=== PATIENT | female | born 1955 | race Caucasian/White ===

== ENCOUNTER 2016-06-25 10:53 | Day surgery (SDC) | payer BC ==
[2016-06-24 15:07] VITALS: BMI 36.6
[2016-06-25] MEDS ORDERED: PROPOFOL 20 ML ONE ×2 (14:18)
[2016-06-25] MEDS ORDERED: ROCURONIUM BROMIDE 50 MG/5 ML VIAL ONE (14:20)
[2016-06-25] MEDS ORDERED: ONDANSETRON 4 MG/2 ML VIAL ONE (14:48)
[2016-06-25] MEDS ORDERED: METOCLOPRAMIDE HCL INJECTION 10 MG/2 ML VIAL ONE (14:49)
[2016-06-25] MEDS ORDERED: DEXAMETHASONE SOD PHOSPHATE 10 MG/1 ML VIAL ONE (14:49)
[2016-06-25] MEDS ORDERED: ceFAZolin SODIUM 1 GM VIAL ONE (15:12)
[2016-06-25] MEDS ORDERED: ONDANSETRON 4 MG/2 ML VIAL IVPUSH PRN (16:33)
[2016-06-25] MEDS ORDERED: LACTATED RINGERS SOLUTION 1,000 ML IV SCH (16:45)
[2016-06-25 17:10] VITALS: TEMP 97.8
[2016-06-25 18:45] VITALS: BP 109/67; PULSE 69
== END 2016-06-25 18:40 | disposition home or self-care (01) ==
LOC: JASU-ENDO 10:53
PROVIDERS: ATTEND Internal Medicine Gastroenterology
PROC: 0F798ZZ Dilation of Common Bile Duct, Via Natural or Artificial Opening Endoscopic (ICD-10-PCS; principal; 2016-06-25 12:30)
DX: K82.8 Other specified diseases of gallbladder (principal); R10.11 Right upper quadrant pain; R11.2 Nausea with vomiting, unspecified
CPT/HCPCS: 76000-TC; 94760

== ENCOUNTER 2016-12-30 17:06 | Emergency (ER) | payer BC ==
[2016-12-30 17:44] VITALS: TEMP 98.7; BMI 35.2
[2016-12-30] MEDS ORDERED: ACETAMINOPHEN 325 MG TABLET (FP) PO ONE (17:46)
--- NOTE | 2016-12-30 17:46 | PDOC ---
Rapid Medical Evaluation Chief Complaint: Headache Time Seen by Provider: 12/30/16 17:41 Medical Evaluation: Allergies Allergy/AdvReac Type Severity Reaction Status Date / Time levofloxacin [From Levaquin] Allergy Verified 12/30/16 17:39 12/30/16 17:42 I have performed a brief in person evaluation of this patient. The patient presents with chief complaint of : headache and hypertension, ringing in left ear sent by PMD Pertinent PE findings: BP 168/90, headache to forehead and top of head I have ordered the following: head cat scan , tylenol 650mg now The patient will proceed to the ER for further evaluation. 12/30/16 17:45
[2016-12-30] MEDS ORDERED: ACETAMINOPHEN 325 MG TABLET (FP) ONE (18:56)
[2016-12-30] MEDS ORDERED: HYDROCHLOROTHIAZIDE 25 MG TABLET (FP) PO ONE (19:55)
[2016-12-30] MEDS ORDERED: LISINOPRIL 10 MG TABLET (FP) PO ONE (19:55)
[2016-12-30] MEDS ORDERED: HYDROCHLOROTHIAZIDE 25 MG TABLET (FP) ONE (19:57)
[2016-12-30] MEDS ORDERED: LISINOPRIL 5 MG TABLET (FP) ONE (19:58)
--- NOTE | 2016-12-30 19:59 | PDOC ---
History of Present Illness - General Chief Complaint: Headache Stated Complaint: PCP SENT/HEADACHE Time Seen by Provider: 12/30/16 17:41 History Source: Patient Exam Limitations: No Limitations - History of Present Illness Initial Comments: 12/30/16 19:59 Patient is a 61 yo F with a PMHx of HTN, anxiety, presented to the ED because of a diffuse headache and dizziness that started on . The pain is on the top of her head, 6/10 pain. It got better over the weekend but today the headache came back. She was given tylenol which helped alleviate the pain. She said she usually gets headaches when her BP is elevated. She also had a headache when she traveled to [place] where she says her BP went to 210/90. She does not routinely check her blood pressure at home. Her anti-hypertensive meds were changed 2 months ago and feels it is not working. Patient denies visual changes, numbness, tingling, LOC, chest pain, photosensitivity and abdominal pain. Past History - Past Medical History Allergies/Adverse Reactions: Allergies Allergy/AdvReac Type Severity Reaction Status Date / Time levofloxacin [From Levaquin] Allergy Verified 12/30/16 17:39 Home Medications: Ambulatory Orders Sertraline HCl [Zoloft -] 25 mg PO DAILY #30 tablet 05/26/14 Hydrochlorothiazide 25 mg PO DAILY 06/25/16 Anemia: No Asthma: No Cancer: No Cardiac Disorders: Yes (angina) CVA: No COPD: No CHF: No Dementia: No Diabetes: No GI Disorders: Yes Disorders: No HTN: Yes Hypercholesterolemia: Yes Liver Disease: No Psychiatric Problems: Yes (ANXIETY) Seizures: No Thyroid Disease: No - Surgical History Abdominal Surgery: No Cardiac Surgery: No Cholecystectomy: Yes Lung Surgery: No Neurologic Surgery: No Orthopedic Surgery: Yes (ARTHROSCOPY KNEE, ELBOW,ANKLE) - Immunization History Immunization Up to Date: Yes - Suicide/Smoking/Psychosocial Hx Smoking Status: Yes Smoking History: Former smoker Have you smoked in the past 12 months: No Number of Cigarettes Smoked Daily: 0 If you are a former smoker, when did you quit?: 18YRS Information on smoking cessation initiated: No Hx Alcohol Use: No Drug/Substance Use Hx: No Substance Use Type: None Hx Substance Use Treatment: No Review of Systems - Review of Systems Able to Perform ROS?: Yes Constitutional: No: Diaphoresis, Fever, Weakness HEENTM: No: Blurred Vision, Recent change in vision, Throat Pain ABD/GI: No: Diarrhea, Nausea, Vomiting : No: Burning, Dysuria Neurological: Yes: Headache. No: Numbness, Paresthesia *Physical Exam - Vital Signs Last Vital Signs Temp Pulse Resp BP Pulse Ox 98.7 F 69 16 160/90 100 12/30/16 17:40 12/30/16 17:40 12/30/16 17:40 12/30/16 17:40 12/30/16 17:40 12/30/16 20:46 Last BP read: 155/85 - Physical Exam Comments: 12/30/16 20:44 General: No acute distress, appears comfortable Neuro: CN 2-12 intact. PERRL, EOMI, strength 5/5 throughout CV: RRR, no murmurs appreciated Lungs: CTA b/l, no rales rhonchi wheezing Abdomen: +Bs, nt, nd Ext: 1+ left radial pulse, 2+ right radial pulse, no pitting edema ED Treatment Course - Medications Given in the ED: ED Medications Discontinued Medications Generic Name Dose Route Start Last Admin Trade Name Gerberq PRN Reason Stop Dose Admin Acetaminophen 650 mg 12/30/16 17:46 12/30/16 18:59 Tylenol - PO 12/30/16 17:47 650 mg ONCE ONE Administration Medical Decision Making - Medical Decision Making 12/30/16 20:47 #Headache #HTN -Head CT negative for acute changes -Tylenol given, alleviated the pain -Lisinopril 10mg, HCTZ 12.5 mg Patient's BP 155/85 before administering lisinopril, hctz. Will discharge. *DC/Admit/Observation/Transfer Diagnosis at time of Disposition: Hypertension Qualifiers: Hypertension type: unspecified Qualified Code(s): I10 - Essential (primary) hypertension Headache Qualifiers: Headache type: unspecified Headache chronicity pattern: acute headache Intractability: not intractable Qualified Code(s): R51 - Headache - Discharge Dispostion Disposition: HOME Condition at time of disposition: Improved Admit: No - Referrals Referrals: Jennifer Davies MD [Primary Care Provider] - Call tomorrow - Patient Instructions Printed Discharge Instructions: How to Monitor Your Blood Pressure at Home Additional Instructions: Please monitor your blood pressure at home. You must follow up with your primary care physician in 1 week. If you feel your symptoms are worsening call your doctor. If it is an emergency, go to your nearest emergency department.
[2017-01-29 13:00] VITALS: BP 146/72; PULSE 65
== END 2016-12-30 20:09 | disposition home or self-care (01) ==
LOC: JER 17:06
DX: I10 Essential (primary) hypertension (principal); E78.00 Pure hypercholesterolemia, unspecified; F41.9 Anxiety disorder, unspecified; Z87.891 Personal history of nicotine dependence
CPT/HCPCS: 70450-TC; 99281-25; 99282-25

== ENCOUNTER 2017-03-04 20:24 | Emergency (ER) | payer BC ==
[2017-03-04 20:30] VITALS: BP 151/77; PULSE 71; TEMP 98.5; BMI 34.4
[2017-03-04] MEDS ORDERED: ASPIRIN 81 MG CHEWABLE TABLETS PO ONE (20:30)
--- NOTE | 2017-03-04 20:30 | PDOC ---
Rapid Medical Evaluation Chief Complaint: Chest Pain Time Seen by Provider: 03/04/17 20:26 Medical Evaluation: Allergies Allergy/AdvReac Type Severity Reaction Status Date / Time levofloxacin [From Levaquin] Allergy Verified 12/30/16 17:39 03/04/17 20:26 CC: midsternal chest pain since this afternoon with nausea. + dipahoresis. pain worse with deep breaths. PMhx; HTN, cardiac catherization. PE: breath sounds clear . regular rate. Plan; cbc cmp cardiac labs, EKG, chest xray Patient to the ED for further management of care/
[2017-03-04] MEDS ORDERED: ASPIRIN COATED 81 MG TABLET.EC ONE (20:31)
[2017-03-04 21:05] LABS: BASO % 0.8 % (0-2.0); EOS % 1.6 % (0-4.5); HEMOGLOBIN 12.6 GM/dL (10.7-15.3); LYMPH % 30.4 % (8-40); MCH 28.1 pg (25.7-33.7); MCHC 33.1 g/dl (32.0-36.0); MEAN CELL VOLUME 84.9 fl (80-96); MEAN PLT VOLUME 9.2 fl (7.5-11.1); MONO % 7.7 % (3.8-10.2); NEUT % 59.5 % (42.8-82.8); PLATELET COUNT 282 K/MM3 (134-434); RBC 4.48 M/mm3 (3.60-5.2); RDW 14.4 % (11.6-15.6); WHITE BLOOD COUNT 8.4 K/mm3 (4.0-10.0)
[2017-03-04 21:20] LABS: URINE APPEARANCE CLEAR; URINE BILIRUBIN NEGATIVE (NEGATIVE); URINE BLOOD NEGATIVE (NEGATIVE); URINE COLOR COLORLESS; URINE GLUCOSE (UA) NEGATIVE (NEGATIVE); URINE KETONE NEGATIVE (NEGATIVE); URINE LEUK ESTERASE NEGATIVE (NEGATIVE); URINE NITRITE NEGATIVE (NEGATIVE); URINE PROTEIN NEGATIVE (NEGATIVE); URINE UROBILINOGEN NEGATIVE mg/dL (0.2-1.0)
[2017-03-04 21:22] LABS: INR 0.93 (0.82-1.09); PROTHROMBIN TIME (PATIENT) 10.5 SEC (9.98-11.88)
[2017-03-04 21:26] LABS: ALBUMIN 3.5 g/dl (3.4-5.0); ANION GAP 5 (8-16); BILIRUBIN,TOTAL 0.2 mg/dL (0.2-1.0); BLOOD UREA NITROGEN 19 mg/dL (7-18); CALCIUM 8.7 mg/dL (8.5-10.1); CHLORIDE 105 mmol/L (98-107); CO2 28 mmol/L (21-32); CREATININE 0.8 mg/dL (0.55-1.02); GLUCOSE,RANDOM 99 mg/dL (74-106); MAGNESIUM 2.2 mg/dL (1.8-2.4); POTASSIUM 4.1 mmol/L (3.5-5.1); SGOT/AST 11 U/L (15-37); SGPT/ALT 21 U/L (12-78); SODIUM 138 mmol/L (136-145); TOT PROT 7.6 g/dl (6.4-8.2)
[2017-03-04 21:29] LABS: ALK PHOS 89 U/L (45-117)
--- NOTE | 2017-03-05 00:02 | PDOC ---
History of Present Illness - General Exam Limitations: No Limitations - History of Present Illness Initial Comments: 03/05/17 00:09 The patient is a 61 year old female, with a significant past medical history of hypertension, angina, hyperlipidemia, headaches and anxiety, who presents to the emergency department with, mid-sternal chest pain beginning approx. 8 hours ago. Patient reports the chest pain began at work when she was at rest. Patient reports the chest pain does not radiate and states she felt nauseous secondary to the chest pain without vomiting. She reports the chest pain was alleviated with rest and reports she did not take any medications for the chest pain. The patient reports she had some minor chest pain when arriving at the ED. However, reports the chest pain has now improved. She denies recent travel or sick contacts. She denies recent fevers, chills, headache or dizziness. She denies recent, vomit, diarrhea or constipation. She denies recent dysuria, frequency, urgency or hematuria. She denies shortness of breath. Allergies: levofloxacin Primary Care Physician: Dr. Jennifer Davies <Christiano Eller - Last Filed: 03/05/17 00:51> - General History Source: Patient <Reji Ortega - Last Filed: 03/05/17 01:03> - General Chief Complaint: Chest Pain Stated Complaint: CHEST PAIN Time Seen by Provider: 03/04/17 20:26 Past History <Christiano Eller - Last Filed: 03/05/17 00:51> - Past Medical History Anemia: No Asthma: No Cancer: No Cardiac Disorders: Yes (angina) CVA: No COPD: No CHF: No Dementia: No Diabetes: No GI Disorders: Yes Disorders: No HTN: Yes Hypercholesterolemia: Yes Liver Disease: No Psychiatric Problems: Yes (ANXIETY) Seizures: No Thyroid Disease: No - Surgical History Abdominal Surgery: No Cardiac Surgery: Yes (cardiac catheterization) Cholecystectomy: Yes Lung Surgery: No Neurologic Surgery: No Orthopedic Surgery: Yes (ARTHROSCOPY KNEE, ELBOW,ANKLE) - Immunization History Immunization Up to Date: Yes - Suicide/Smoking/Psychosocial Hx Smoking Status: Yes Smoking History: Never smoked Have you smoked in the past 12 months: No Number of Cigarettes Smoked Daily: 0 If you are a former smoker, when did you quit?: 18YRS Information on smoking cessation initiated: No Hx Alcohol Use: No Drug/Substance Use Hx: No Substance Use Type: None Hx Substance Use Treatment: No <HuloiReji - Last Filed: 03/05/17 01:03> - Past Medical History Allergies/Adverse Reactions: Allergies Allergy/AdvReac Type Severity Reaction Status Date / Time levofloxacin [From Levaquin] Allergy Verified 03/04/17 20:27 Home Medications: Ambulatory Orders Sertraline HCl [Zoloft -] 25 mg PO DAILY #30 tablet 05/26/14 Hydrochlorothiazide 25 mg PO DAILY 06/25/16 Review of Systems - Review of Systems Comments:: 03/05/17 00:10 CONSTITUTIONAL: Absent: fever, no chills, no fatigue EYES: Absent: visual changes ENT: Absent: ear pain, no sore throat CARDIOVASCULAR: Present: +Chest pain Absent: no palpitations RESPIRATORY: Absent: cough, no SOB GI: Present: +Nausea Absent: abdominal pain, no vomiting, no constipation, no diarrhea GENITOURINARY: Absent: dysuria, no frequency, no hematuria MUSKULOSKELETAL: Absent: back pain, no arthralgia, no myalgia SKIN: Absent: rash NEURO: Absent: headache <Christiano Eller - Last Filed: 03/05/17 00:51> *Physical Exam - Vital Signs Last Vital Signs Temp Pulse Resp BP Pulse Ox 98.5 F 71 18 151/77 100 03/04/17 20:27 03/04/17 20:27 03/04/17 20:27 03/04/17 20:27 03/04/17 20:27 - Physical Exam Comments: 03/05/17 00:10 GENERAL: Well-appearing, well-nourished. No apparent distress. HEENT: Normocephalic, atraumatic. PERRL, EOM intact. CARDIOVASCULAR: Normal S1, S2. Regular rate and rhythm. PULMONARY: Clear to auscultation bilaterally. ABDOMEN: Soft, non-distended, non-tender. EXTREMITIES: Normal ROM in all four extremities. No gross deformities. SKIN: Warm, dry. No rash NEUROLOGICAL: No focal neurological deficits. <Christiano Eller - Last Filed: 03/05/17 00:51> - Vital Signs Last Vital Signs Temp Pulse Resp BP Pulse Ox 98.5 F 71 18 151/77 100 03/04/17 20:27 03/04/17 20:27 03/04/17 20:27 03/04/17 20:27 03/04/17 20:27 <Reji Ortega - Last Filed: 03/05/17 01:03> Heart Score/ECG Review #1 03/05/17 00:11 Normal Sinus Rhythm at 62 bpm QT/QTc 426/432 ms #2 03/05/17 00:51 Sinus Rhythm at 61 bpm with 1st degree AV block QT/QTc 448/450 ms <Christiano Eller - Last Filed: 03/05/17 00:51> ED Treatment Course - LABORATORY CBC & Chemistry Diagram: 03/04/17 20:44 03/04/17 20:44 - ADDITIONAL ORDERS Additional order review: Laboratory Results 03/04/17 03/04/17 03/04/17 20:55 20:44 20:44 PT with INR 10.50 INR 0.93 Sodium 138 Potassium 4.1 Chloride 105 Carbon Dioxide 28 Anion Gap 5 L BUN 19 H D Creatinine 0.8 D Creat Clearance w eGFR > 60 Random Glucose 99 D Calcium 8.7 Magnesium 2.2 D Total Bilirubin 0.2 D AST 11 L D ALT 21 D Alkaline Phosphatase 89 D Creatine Kinase 77 Troponin I < 0.02 Total Protein 7.6 Albumin 3.5 Urine Color Colorless Urine Appearance Clear Urine pH 6.0 Ur Specific Byron 1.006 Urine Protein Negative Urine Glucose (UA) Negative Urine Ketones Negative Urine Blood Negative Urine Nitrite Negative Urine Bilirubin Negative Urine Urobilinogen Negative Ur Leukocyte Esterase Negative 03/04/17 20:44 RBC 4.48 MCV 84.9 MCHC 33.1 RDW 14.4 MPV 9.2 Neutrophils % 59.5 D Lymphocytes % 30.4 D Monocytes % 7.7 Eosinophils % 1.6 D Basophils % 0.8 - Medications Given in the ED: ED Medications Discontinued Medications Generic Name Dose Route Start Last Admin Trade Name Freq PRN Reason Stop Dose Admin Aspirin 162 mg 03/04/17 20:30 03/04/17 21:31 Asa - PO 03/04/17 20:31 162 mg ONCE ONE Administration <Christiano Eller - Last Filed: 03/05/17 00:51> - LABORATORY CBC & Chemistry Diagram: 03/04/17 20:44 03/04/17 20:44 - ADDITIONAL ORDERS Additional order review: Laboratory Results 03/04/17 03/04/17 03/04/17 20:55 20:44 20:44 PT with INR 10.50 INR 0.93 Sodium 138 Potassium 4.1 Chloride 105 Carbon Dioxide 28 Anion Gap 5 L BUN 19 H D Creatinine 0.8 D Creat Clearance w eGFR > 60 Random Glucose 99 D Calcium 8.7 Magnesium 2.2 D Total Bilirubin 0.2 D AST 11 L D ALT 21 D Alkaline Phosphatase 89 D Creatine Kinase 77 Troponin I < 0.02 Total Protein 7.6 Albumin 3.5 Urine Color Colorless Urine Appearance Clear Urine pH 6.0 Ur Specific Byron 1.006 Urine Protein Negative Urine Glucose (UA) Negative Urine Ketones Negative Urine Blood Negative Urine Nitrite Negative Urine Bilirubin Negative Urine Urobilinogen Negative Ur Leukocyte Esterase Negative 03/04/17 20:44 RBC 4.48 MCV 84.9 MCHC 33.1 RDW 14.4 MPV 9.2 Neutrophils % 59.5 D Lymphocytes % 30.4 D Monocytes % 7.7 Eosinophils % 1.6 D Basophils % 0.8 - Medications Given in the ED: ED Medications Discontinued Medications Generic Name Dose Route Start Last Admin Trade Name Gerberq PRN Reason Stop Dose Admin Aspirin 162 mg 03/04/17 20:30 03/04/17 21:31 Asa - PO 03/04/17 20:31 162 mg ONCE ONE Administration <Reji Ortega - Last Filed: 03/05/17 01:03> Medical Decision Making - Medical Decision Making 03/05/17 01:01 Dr. Ortega: The scribe's documentation has been prepared under my direction and personally reviewed by me in its entirery. I confirm that the note above accurately reflects all work, treatment, procedures, and medical decision making performed by me. labs, chest x-ray, and EKGs are normal. Pt advised to go to her pcp and orientation & mobility specialist immediately if symptoms continue. <Reji Ortega - Last Filed: 03/05/17 01:03> *DC/Admit/Observation/Transfer - Attestations Scribe Attestion: 03/05/17 00:12 Documentation prepared by Christiano Eller, acting as certified medical technician assistant for Reji Ortega MD. <Christiano Eller - Last Filed: 03/05/17 00:51> - Discharge Dispostion Admit: No <Reji Ortega - Last Filed: 03/05/17 01:03> Diagnosis at time of Disposition: Chest pain Qualifiers: Chest pain type: unspecified Qualified Code(s): R07.9 - Chest pain, unspecified - Discharge Dispostion Disposition: HOME Condition at time of disposition: Stable - Referrals Referrals: Jennifer Davies MD [Primary Care Provider] - Wilfrido Kemp MD [Staff Physician] - - Patient Instructions Printed Discharge Instructions: DI for Chest Pain Additional Instructions: continue all your medications. Please follow up with your doctor as soon as possible, if symptoms continue. Return if any problems. - Post Discharge Activity
--- NOTE | 2017-03-05 09:31 | EKG ---
Test Reason : Blood Pressure : / mmHG Vent. Rate : 062 BPM Atrial Rate : 062 BPM P-R Int : 204 ms QRS Dur : 072 ms QT Int : 426 ms P-R-T Axes : 046 044 048 degrees QTc Int : 432 ms POOR DATA QUALITY, INTERPRETATION MAY BE ADVERSELY AFFECTED NORMAL SINUS RHYTHM NORMAL ECG WHEN COMPARED WITH ECG OF 05-APR-2015 01:05, NO SIGNIFICANT CHANGE WAS FOUND Confirmed by FRANCINE RAINES, SHRADDHA ([id number]) on 03/05/2017 9:30:51 AM Referred By: Confirmed By:SHRADDHA ESCAMILLA MD
--- NOTE | 2017-03-05 09:37 | EKG ---
Test Reason : Blood Pressure : / mmHG Vent. Rate : 061 BPM Atrial Rate : 061 BPM P-R Int : 218 ms QRS Dur : 078 ms QT Int : 448 ms P-R-T Axes : 079 054 061 degrees QTc Int : 450 ms SINUS RHYTHM WITH 1ST DEGREE A-V BLOCK SEPTAL INFARCT , AGE UNDETERMINED ABNORMAL ECG WHEN COMPARED WITH ECG OF 04-MAR-2017 20:37, NO SIGNIFICANT CHANGE WAS FOUND Confirmed by SHRADDHA ESCAMILLA MD ([id number]) on 03/05/2017 9:37:08 AM Referred By: Confirmed By:SHRADDHA ESCAMILLA MD
== END 2017-03-05 01:05 | disposition home or self-care (01) ==
LOC: JER 20:24
DX: R07.89 Other chest pain (principal); I25.119 Atherosclerotic heart disease of native coronary artery with unspecified angina pectoris; Z98.61 Coronary angioplasty status; I10 Essential (primary) hypertension; E78.5 Hyperlipidemia, unspecified; R51 Headache; F41.9 Anxiety disorder, unspecified
CPT/HCPCS: 36415; 71046-TC; 80053; 81003; 82550; 83735; 84484; 85025; 85610; 93005; 93010; 99281-25

== ENCOUNTER 2017-12-03 16:21 | Emergency (ER) | payer BC ==
[2017-12-03 16:34] VITALS: BP 148/64; PULSE 82; TEMP 98.3; BMI 31.3
--- NOTE | 2017-12-03 16:35 | PDOC ---
Rapid Medical Evaluation Time Seen by Provider: 12/03/17 16:31 Medical Evaluation: Allergies Allergy/AdvReac Type Severity Reaction Status Date / Time levofloxacin [From Levaquin] Allergy Verified 03/04/17 20:27 12/03/17 16:32 The patient complains of: tripped and fell striking her face . no loc, no dizziness priot to fall, on no anticoagulant, last tdap less than 5 yrs ago On brief exam: abrasion and ecchymosis to left cheek and orbital floor, laceration to left upper lip across the maliha border, abrasion to right 5 th digit The patient ordered for: facial ct The patient to proceed to the ED Discharge Disposition - Diagnosis Fall - Referrals - Patient Instructions - Post Discharge Activity
--- NOTE | 2017-12-03 17:49 | PDOC ---
History of Present Illness - General Chief Complaint: Injury Stated Complaint: FALL/INJURY Time Seen by Provider: 12/03/17 16:31 - History of Present Illness Initial Comments: 62-year-old female with past medical history significant for hypertension presents for evaluation of right knee pain and facial pain after a fall. She states she tripped and fell landing on her face and right knee. No loss consciousness postinjury nausea vomiting or headache. No visual changes. 12/03/17 17:36 Past History - Past Medical History Allergies/Adverse Reactions: Allergies Allergy/AdvReac Type Severity Reaction Status Date / Time levofloxacin [From Levaquin] Allergy Verified 12/03/17 16:35 Home Medications: Ambulatory Orders Sertraline HCl [Zoloft -] 25 mg PO DAILY #30 tablet 05/26/14 Hydrochlorothiazide 25 mg PO DAILY 06/25/16 Anemia: No Asthma: No Cancer: No Cardiac Disorders: Yes (angina) CVA: No COPD: No CHF: No Dementia: No Diabetes: No GI Disorders: Yes Disorders: No HTN: Yes Hypercholesterolemia: Yes Liver Disease: No Psychiatric Problems: Yes (ANXIETY) Seizures: No Thyroid Disease: No - Surgical History Abdominal Surgery: No Cardiac Surgery: Yes (cardiac catheterization) Cholecystectomy: Yes Lung Surgery: No Neurologic Surgery: No Orthopedic Surgery: Yes (ARTHROSCOPY KNEE, ELBOW,ANKLE) - Immunization History Immunization Up to Date: Yes - Suicide/Smoking/Psychosocial Hx Smoking Status: Yes Smoking History: Never smoked Have you smoked in the past 12 months: No Number of Cigarettes Smoked Daily: 0 If you are a former smoker, when did you quit?: 18YRS Information on smoking cessation initiated: No Hx Alcohol Use: No Drug/Substance Use Hx: No Substance Use Type: None Hx Substance Use Treatment: No Review of Systems - Review of Systems HEENTM: Yes: See HPI Musculoskeletal: Yes: See HPI, Joint Pain All Other Systems: Reviewed and Negative *Physical Exam - Vital Signs Last Vital Signs Temp Pulse Resp BP Pulse Ox 98.3 F 82 16 148/64 98 12/03/17 16:22 12/03/17 16:22 12/03/17 16:22 12/03/17 16:22 12/03/17 16:22 - Physical Exam Comments: HEAD: NC there are multiple facial abrasions around the left eye all superficial., As a subcentimeter laceration longitudinally on the left side of the upper lip crossing the vermilion border with a small amount of subcutaneous fat exposed. EYES: Conjuntiva clear Ears: Canals and TM's normal NOSE: No d/c THROAT: Moist mucous membrances, oral pharanx clear, uvula midline NECK: Supple without adenopathy CARDIAC: S1 S2 LUNGS: CTA Full and Equal breath sounds ABDOMEN: Soft NT ND MS: Full ROM in all joints without edema NEUROLOGIC: No gross sensory or motor deficits, NVID SKIN: Normal color and temperature no lesions or rashes 12/03/17 17:36 12/03/17 19:01 Right knee skin color and temperature are normal range of motion 0-90 is mild tenderness at the anterior aspect of the knee. No evidence of instability or gross sensory motor deficits thighs and calves are soft and nontender. Medical Decision Making - Medical Decision Making 12/03/17 17:49 Had discussion about wound healing and primary repair of the laceration. Patient refused primary suturing of the lip laceration. She would like to let it heal by secondary intention. 12/03/17 19:03 CT facial bones negative for fracture. *DC/Admit/Observation/Transfer Diagnosis at time of Disposition: Fall, Knee contusion, Facial abrasion - Discharge Dispostion Disposition: HOME Condition at time of disposition: Stable Decision to Admit order: No - Referrals Referrals: Jennifer Davies MD [Primary Care Provider] - - Patient Instructions Printed Discharge Instructions: DI for Abrasion, Contusion Additional Instructions: Return to the emergency room should symptoms worsen or go unresolved. Please follow up with her primary care physician for further evaluation and treatment of the wounds. Local soap and water and leaving the areas open to air it is acceptable for wound care. He may return to the emergency room should he have any redness drainage swelling or increasing pain around the areas of the wounds. The right knee injury may follow-up with orthopedic surgery for further evaluation and treatment options. Should follow up with both her primary care physician and orthopedic surgery in one to 2 days. Your wound on her level have a scar. You have refused suturing and this will heal on its own. - Post Discharge Activity
== END 2017-12-03 19:07 | disposition home or self-care (01) ==
LOC: JERFT 16:21
DX: S80.01XA Contusion of right knee, initial encounter (principal); I10 Essential (primary) hypertension; F41.9 Anxiety disorder, unspecified; E78.00 Pure hypercholesterolemia, unspecified; Z87.891 Personal history of nicotine dependence; W18.39XA Other fall on same level, initial encounter; Y93.89 Activity, other specified; Y92.9 Unspecified place or not applicable
CPT/HCPCS: 70486-TC; 73562-TC-RT-FY; 99281-25

== ENCOUNTER 2018-10-22 21:28 | Emergency (ER) | payer BC ==
--- NOTE | 2018-10-22 21:35 | PDOC ---
Rapid Medical Evaluation Chief Complaint: Wound Time Seen by Provider: 10/22/18 21:30 Medical Evaluation: Allergies Allergy/AdvReac Type Severity Reaction Status Date / Time levofloxacin [From Levaquin] Allergy Verified 12/03/17 16:35 10/22/18 21:31 63 year old female c/o left 4th digit infection. patient seen in urgent care and has been taking Augmentin x 2 days. now with increased swelling to hand and pain. PE: patient alert ox3, left 4th digit swollen and erythematous. no streaking noted. A: finger cellulitis P: xray labs patient to the ER for further management of care Discharge Disposition - Diagnosis Cellulitis of finger of left hand - Referrals - Patient Instructions - Post Discharge Activity
[2018-10-22 21:38] VITALS: BP 150/76; PULSE 93; TEMP 98.5; BMI 36.0
[2018-10-22] MEDS ORDERED: SULFAMETHOXAZOLE/TRIMETHOPRIM 800MG/160MG D.S. TABLET PO ONE (22:24)
[2018-10-22] MEDS ORDERED: CEPHALEXIN MONOHYDRATE 500 MG CAPSULE (UD) PO ONE (22:24)
[2018-10-22] MEDS ORDERED: IBUPROFEN 600 MG TABLET (FP) PO ONE ×2 (22:25→22:27)
[2018-10-22] MEDS ORDERED: SULFAMETHOXAZOLE/TRIMETHOPRIM 800MG/160MG D.S. TABLET ONE (22:26)
[2018-10-22] MEDS ORDERED: CEPHALEXIN MONOHYDRATE 500 MG CAPSULE (UD) ONE (22:27)
--- NOTE | 2018-10-22 22:51 | PDOC ---
History of Present Illness - General Chief Complaint: Wound Stated Complaint: SWOLLEN FINGER Time Seen by Provider: 10/22/18 21:30 History Source: Patient Exam Limitations: No Limitations Past History - Past Medical History Allergies/Adverse Reactions: Allergies Allergy/AdvReac Type Severity Reaction Status Date / Time levofloxacin [From Levaquin] Allergy Verified 10/22/18 21:34 Home Medications: Ambulatory Orders Sertraline HCl [Zoloft -] 25 mg PO DAILY #30 tablet 05/26/14 Hydrochlorothiazide 25 mg PO DAILY 06/25/16 Cephalexin [Keflex] 500 mg PO QID #39 capsule 10/22/18 Sulfamethoxazole/Trimethoprim [Bactrim Ds -] 1 tab PO BID #19 tablet 10/22/18 Anemia: No Asthma: No Cancer: No Cardiac Disorders: Yes (angina) CVA: No COPD: No CHF: No Dementia: No Diabetes: No GI Disorders: Yes Disorders: No HTN: Yes Hypercholesterolemia: Yes Liver Disease: No Psychiatric Problems: Yes (ANXIETY) Seizures: No Thyroid Disease: No - Surgical History Abdominal Surgery: No Cardiac Surgery: Yes (cardiac catheterization) Cholecystectomy: Yes Lung Surgery: No Neurologic Surgery: No Orthopedic Surgery: Yes (ARTHROSCOPY KNEE, ELBOW,ANKLE) - Immunization History Immunization Up to Date: Yes - Suicide/Smoking/Psychosocial Hx Smoking Status: Yes Smoking History: Never smoked Have you smoked in the past 12 months: No Number of Cigarettes Smoked Daily: 0 If you are a former smoker, when did you quit?: 18YRS Information on smoking cessation initiated: No Hx Alcohol Use: No Drug/Substance Use Hx: No Substance Use Type: None Hx Substance Use Treatment: No *Physical Exam - Vital Signs Last Vital Signs Temp Pulse Resp BP Pulse Ox 98.5 F 93 H 16 150/76 98 10/22/18 21:35 10/22/18 21:35 10/22/18 21:35 10/22/18 21:35 10/22/18 21:35 - Physical Exam General Appearance: No: Apparent Distress Extremity: positive: Other (+swelling and redness along L 4th PIP joint, clear drainage from finger, +warmth, no streaking noted, limited flexion/extension of finger) Neurologic: positive: Alert, Normal Mood/Affect ED Treatment Course - Medications Given in the ED: ED Medications Discontinued Medications Generic Name Dose Route Start Last Admin Trade Name Freq PRN Reason Stop Dose Admin Cephalexin HCl 500 mg 10/22/18 22:24 10/22/18 22:30 Keflex - PO 10/22/18 22:25 500 mg ONCE ONE Administration Ibuprofen 600 mg 10/22/18 22:25 10/22/18 22:30 Motrin - PO 10/22/18 22:26 600 mg ONCE ONE Administration Trimethoprim/Sulfamethoxazole 1 each 10/22/18 22:24 10/22/18 22:30 Bactrim Ds - PO 10/22/18 22:25 1 each ONCE ONE Administration Medical Decision Making - Medical Decision Making 63 yo F hx of HTN, anxiety presents with L ring finger infection from 3 days ago. States 5 days ago, noted a blister on her finger, which she popped with a pin. The next day, she was aggressively cleaning site with Peroxide and Neosporin. Noticed finger was starting to get worse along with clear discharge. Went to yesterday and was prescribed Bactroban and Augmentin. However, states the finger does not appear to be getting better. Has taken 4 dose of the Augmentin. Has not noted any increased in redness but has noted increase in swelling. Denies fever, streaking. Unaware of any possible bug bite Appears as L finger cellulitis Xrays unremarkable No concern for tenosynovitis based on current exam Site of cellulitis was demarcated and wound culture was sent Will change abx to Keflex and Bactrim Patient advised to return if getting worse D/W Dr. Briceño 10/22/18 22:46 *DC/Admit/Observation/Transfer Diagnosis at time of Disposition: Cellulitis of finger of left hand - Discharge Dispostion Disposition: HOME Condition at time of disposition: Stable Decision to Admit order: No - Prescriptions Prescriptions: Cephalexin [Keflex] 500 mg PO QID #39 capsule Sulfamethoxazole/Trimethoprim [Bactrim Ds -] 1 tab PO BID #19 tablet - Referrals Referrals: Jennifer Davies MD [Primary Care Provider] - 2 Days - Patient Instructions Printed Discharge Instructions: DI for Cellulitis -- Adult Additional Instructions: Thank you for choosing [facility]. It was a pleasure taking care of you. You may take Motrin 600 mg every 6 hours by mouth as needed for mild to moderate pain. Take Motrin with food. Take the antibiotics as prescribed Please stop the Augmentin and Bactroban ointment Please return in 2 days for wound check. Return to the Emergency Department if your symptoms worsen or persist, you have fever, streaking, heavy drainage, redness extends beyond the outline demarcated or other concerning symptoms. - Post Discharge Activity
== END 2018-10-22 23:05 | disposition home or self-care (01) ==
LOC: JER 21:28
DX: L03.012 Cellulitis of left finger (principal); I25.119 Atherosclerotic heart disease of native coronary artery with unspecified angina pectoris; I10 Essential (primary) hypertension; Z95.5 Presence of coronary angioplasty implant and graft; E78.00 Pure hypercholesterolemia, unspecified; F41.9 Anxiety disorder, unspecified
CPT/HCPCS: 73140-TC-LT-FY; 87070; 87205; 99282-25

== ENCOUNTER 2018-10-23 12:51 | Inpatient (IN) | payer BC ==
[2018-10-23 13:23] VITALS: BMI 47.0
[2018-10-23] MEDS ORDERED: VANCOMYCIN 1,000 MG in DEXTROSE 5%-WATER - 250 ML IVPB ONE (14:07)
[2018-10-23] MEDS ORDERED: PIPERACILLIN/TAZOB 3.375 GM 3.375 GM in DEXTROSE 5%-WATER - 50 ML IVPB ONE (14:07)
[2018-10-23] MEDS ORDERED: ACETAMINOPHEN 1000 MG/100 ML VIAL (NON FORMULARY) IVPB ONE (14:08)
--- NOTE | 2018-10-23 14:38 | PDOC ---
History of Present Illness - General Chief Complaint: Revisit,Wound Recheck Stated Complaint: REVISIT Time Seen by Provider: 10/23/18 13:44 History Source: Patient Exam Limitations: No Limitations Past History - Travel Traveled outside of the country in the last 30 days: No Close contact w/someone who was outside of country & ill: No - Past Medical History Allergies/Adverse Reactions: Allergies Allergy/AdvReac Type Severity Reaction Status Date / Time levofloxacin [From Levaquin] Allergy Verified 10/23/18 13:18 Home Medications: Ambulatory Orders Torsemide 10 mg PO DAILY 10/23/18 Anemia: No Asthma: No Cancer: No Cardiac Disorders: Yes (angina) CVA: No COPD: No CHF: No Dementia: No Diabetes: No GI Disorders: Yes Disorders: No HTN: Yes Hypercholesterolemia: Yes Liver Disease: No Psychiatric Problems: Yes (ANXIETY) Seizures: No Thyroid Disease: No - Surgical History Abdominal Surgery: No Cardiac Surgery: Yes (cardiac catheterization) Cholecystectomy: Yes Lung Surgery: No Neurologic Surgery: No Orthopedic Surgery: Yes (ARTHROSCOPY KNEE, ELBOW,ANKLE) - Immunization History Immunization Up to Date: Yes - Suicide/Smoking/Psychosocial Hx Smoking Status: Yes Smoking History: Never smoked Have you smoked in the past 12 months: No Number of Cigarettes Smoked Daily: 0 If you are a former smoker, when did you quit?: 18YRS Hx Alcohol Use: No Drug/Substance Use Hx: No Substance Use Type: None Hx Substance Use Treatment: No Review of Systems - Review of Systems Able to Perform ROS?: Yes Comments:: 10/23/18 15:41 CONSTITUTIONAL: Absent: fever, chills, diaphoresis, generalized weakness, malaise, loss of appetite HEENT: Absent: rhinorrhea, nasal congestion, throat pain, throat swelling, difficulty swallowing, mouth swelling, ear pain, eye pain, visual Changes CARDIOVASCULAR: Absent: chest pain, loss of consciousness, palpitations, irregular heart rate, peripheral edema RESPIRATORY: Absent: cough, shortness of breath, dyspnea with exertion, orthopnea, wheezing, stridor, hemoptysis GASTROINTESTINAL: Absent: abdominal pain, abdominal distension, nausea, vomiting, diarrhea, constipation, melena, hematochezia GENITOURINARY: Absent: dysuria, frequency, urgency, hesitancy, hematuria, flank pain, genital pain MUSCULOSKELETAL: Absent: myalgia, arthralgia, joint swelling SKIN: Present: skin infection to the L 4th finger Absent: rash, itching, pallor HEMATOLOGIC/IMMUNOLOGIC: Absent: easy bleeding, easy bruising, lymphadenopathy, frequent infections ENDOCRINE: Absent: unexplained weight gain, unexplained weight loss, heat intolerance, cold intolerance NEUROLOGIC: Absent: headache, focal weakness or paresthesias, dizziness, unsteady gait, seizure, mental status changes, bladder or bowel incontinence PSYCHIATRIC: Absent: anxiety, depression, suicidal or homicidal ideation, hallucinations. Is the patient limited Azeri proficient: No *Physical Exam - Vital Signs Last Vital Signs Temp Pulse Resp BP Pulse Ox 98.2 F 70 16 125/74 97 10/23/18 13:19 10/23/18 13:19 10/23/18 13:19 10/23/18 13:19 10/23/18 13:19 - Physical Exam Comments: 10/23/18 15:41 GENERAL: Well developed, well nourished. Awake and alert. No acute distress. HEENT: Normocephalic, atraumatic. PERRLA, EOMI. No conjunctival pallor. Sclera are non- icteric. Moist mucous membranes. Oropharynx is clear. NECK: Supple. Full ROM. No JVD. Carotid pulses 2+ and symmetric, without bruits. No thyromegaly. No lymphadenopathy. MUSCULOSKELETAL Pt unable to flex the L 4th finger, sausage like appearance. Normal range of motion at all other joints. No bony deformities or tenderness. No CVA tenderness. EXTREMITIES: Swelling noted to the L 4th finger. No cyanosis. No clubbing. No edema. No calf tenderness. SKIN: Erythematous swollen L4th dorsal finger with a central ulceration noted superiorly to the PIP. The erythema spread past the marker placed yesterday with streating proximally noted. Warm and dry. Normal capillary refill. No jaundice. NEUROLOGICAL: Alert, awake, appropriate. Cranial nerves 2-12 intact. No deficits to light touch and temperature in face, upper extremities and lower extremities. No motor deficits in the in face, upper extremities and lower extremities. Normoreflexic in the upper and lower extremities. Normal speech. Toes are down- going bilaterally. Gait is normal without ataxia. PSYCHIATRIC: Cooperative. Good eye contact. Appropriate mood and affect. ED Treatment Course - LABORATORY CBC & Chemistry Diagram: 10/23/18 15:09 10/23/18 15:09 Medical Decision Making - Medical Decision Making 10/23/18 15:43 The patient is a 63 y/o F with no PMH who presents to the ER today with a worsening cellulitis to the L 4th finger. The patient was evaluated in our ED yesterday and diagnosed with cellulitis. There was no swelling noted yesterday. Pt states that she had been taking amoxicillin prior to her visit yesterday, that she received from an UC one week ago. Yesterday, the patient received a dose of Bactrim and Keflex in the ER and she was switched to this medication to take as an outpatient. The area was marked yesterday. Pt states she has taken an additional two doses of Bacrim and Keflex and the erythema has gotten worse and is now streaking past the marker that was placed yesterday. She states that the hand is very painful and she is now unable to make a fist. Denies fevers, chills, numbness, tingling and weakness to the affected extremity. The patient is R hand dominant A/P: Cellulitis; failing out patient treatment As noted pt with streaking erythema proximally of the L4th finger that is outside the boundry drawn yesterday Sausage like appearance; however low likelyhood of flexor tinosynovitis as pt has the injury dorsally Afebrile Labs, EKG, IV vanc zosyn Will need admission once labs are back Sign out given to JYOTI Angel, pt pending labs and admission *DC/Admit/Observation/Transfer Diagnosis at time of Disposition: Cellulitis of finger of left hand - Discharge Dispostion Condition at time of disposition: Stable - Referrals - Patient Instructions - Post Discharge Activity
[2018-10-23] MEDS ORDERED: VANCOMYCIN 1 GRAM (PRE-DOCKED) 1,000 MG/250 ML BAG IVPB ONE (15:14)
[2018-10-23] MEDS ORDERED: ACETAMINOPHEN INJECTION 100 ML IVPB ONE (15:14)
[2018-10-23] MEDS ORDERED: PIPERACILLIN/TAZOB 3.375 GM 3.375 GM/50 ML BAG IVPB ONE (15:15)
[2018-10-23 15:25] LABS: BASO % 0.8 % (0-2.0); EOS % 1.8 % (0-4.5); HEMATOCRIT 37.9 % (32.4-45.2); HEMOGLOBIN 12.5 GM/dL (10.7-15.3); LYMPH % 21.3 % (8-40); MCH 28.2 pg (25.7-33.7); MCHC 33.1 g/dl (32.0-36.0); MEAN CELL VOLUME 85.3 fl (80-96); MEAN PLT VOLUME 9.1 fl (7.5-11.1); MONO % 6.9 % (3.8-10.2); NEUT % 69.2 % (42.8-82.8); PLATELET COUNT 279 K/MM3 (134-434); RBC 4.44 M/mm3 (3.60-5.2); RDW 14.3 % (11.6-15.6); WHITE BLOOD COUNT 8.1 K/mm3 (4.0-10.0)
[2018-10-23 15:38] LABS: INR 0.97 (0.83-1.09); PROTHROMBIN TIME (PATIENT) 11.4 SEC (9.7-13.0)
[2018-10-23 15:51] LABS: ALBUMIN 3.6 g/dl (3.4-5.0); BILIRUBIN,TOTAL 0.2 mg/dL (0.2-1); BLOOD UREA NITROGEN 16.8 mg/dL (7-18); CALCIUM 9.1 mg/dL (8.5-10.1); CREATININE 0.8 mg/dL (0.55-1.3); POTASSIUM 4.5 mmol/L (3.5-5.1); TOT PROT 7.5 g/dl (6.4-8.2)
--- NOTE | 2018-10-23 16:29 | PDOC ---
*Physical Exam - Vital Signs Last Vital Signs Temp Pulse Resp BP Pulse Ox 98.2 F 70 16 125/74 97 10/23/18 13:19 10/23/18 13:19 10/23/18 13:19 10/23/18 13:19 10/23/18 13:19 ED Treatment Course - LABORATORY CBC & Chemistry Diagram: 10/23/18 15:09 10/23/18 15:09 - ADDITIONAL ORDERS Additional order review: Laboratory Results 10/23/18 10/23/18 15:09 15:09 PT with INR 11.40 INR 0.97 Sodium 141 Potassium 4.5 Chloride 106 Carbon Dioxide 28 Anion Gap 7 L BUN 16.8 Creatinine 0.8 Est GFR (CKD-EPI)AfAm 91.58 Est GFR (CKD-EPI)NonAf 79.01 Random Glucose 94 Calcium 9.1 Total Bilirubin 0.2 AST 12 L ALT 18 Alkaline Phosphatase 86 Total Protein 7.5 Albumin 3.6 10/23/18 15:09 RBC 4.44 MCV 85.3 MCHC 33.1 RDW 14.3 MPV 9.1 Neutrophils % 69.2 Lymphocytes % 21.3 D Monocytes % 6.9 Eosinophils % 1.8 Basophils % 0.8 - Medications Given in the ED: ED Medications Discontinued Medications Generic Name Dose Route Start Last Admin Trade Name Freq PRN Reason Stop Dose Admin Acetaminophen 1,000 mg 10/23/18 14:08 10/23/18 15:12 Ofirmev Injection - IVPB 10/23/18 14:09 1,000 mg ONCE ONE Administration Piperacillin Sod/Tazobactam 50 mls @ 100 mls/hr 10/23/18 14:07 10/23/18 15:12 Sod 3.375 gm/ Dextrose IVPB 10/23/18 14:36 100 mls/hr ONCE ONE Administration Protocol Medical Decision Making - Medical Decision Making Patient signed out to me by JYOTI Rust Patient returns to ED for worsening cellulitis of L 4th finger Patient was given Vanc and Zosyn by previous provider Labs unremarkable Plan to admit for further monitoring 10/23/18 16:28 *DC/Admit/Observation/Transfer Diagnosis at time of Disposition: Cellulitis of finger of left hand - Discharge Dispostion Condition at time of disposition: Stable Decision to Admit order: Yes - Referrals Referrals: Jennifer Davies MD [Primary Care Provider] - - Patient Instructions - Post Discharge Activity
--- NOTE | 2018-10-23 17:15 | PN ---
Teaching Attending Note Name of Resident: Sarah Walker ATTENDING PHYSICIAN STATEMENT I saw and evaluated the patient. I reviewed the resident's note and discussed the case with the resident. I agree with the resident's findings and plan as documented. SUBJECTIVE: Patient is a 63 y/o Female with PMHx of HTN presents with Left 4th digit cellulitis. Patient stated that had a pustule on her finger where she pumped it and after that the finger started the swell up. OBJECTIVE: Vital Signs Temperature 98.2 F 10/23/18 13:19 Pulse Rate 70 10/23/18 13:19 Respiratory Rate 16 10/23/18 13:19 Blood Pressure 125/74 10/23/18 13:19 O2 Sat by Pulse Oximetry (%) 97 10/23/18 13:19 GENERAL: The patient is awake, alert, and fully oriented, in no acute distress. HEAD: Normal with no signs of trauma. EYES: PERRL, extraocular movements intact, sclera anicteric, conjunctiva clear. ENT: Ears normal, oropharynx clear without exudates, moist mucous membranes. NECK: Trachea midline, full range of motion, supple. LUNGS: Breath sounds equal, clear to auscultation bilaterally, no wheezes, no crackles, no accessory muscle use. HEART: Regular rate and rhythm, S1, S2 without murmur, rub or gallop. ABDOMEN: Soft, NT,ND, normoactive bowel sounds, no guarding, no rebound, no hepatosplenomegaly, no masses. EXTREMITIES: 2+ pulses, warm, well-perfused, no edema. NEUROLOGICAL: Cranial nerves II through XII grossly intact. Normal speech, gait not observed. PSYCH: Normal mood, normal affect. SKIN: Warm, dry, normal turgor, no rashes or lesions noted CBCD WBC 8.1 K/mm3 (4.0-10.0) 10/23/18 15:09 RBC 4.44 M/mm3 (3.60-5.2) 10/23/18 15:09 Hgb 12.5 GM/dL (10.7-15.3) 10/23/18 15:09 Hct 37.9 % (32.4-45.2) 10/23/18 15: MCV 85.3 fl (80-96) 10/23/18 15:09 MCHC 33.1 g/dl (32.0-36.0) 10/23/18 15:09 RDW 14.3 % (11.6-15.6) 10/23/18 15:09 Plt Count 279 K/MM3 (134-434) 10/23/18 15:09 MPV 9.1 fl (7.5-11.1) 10/23/18 15:09 CMP Sodium 141 mmol/L (136-145) 10/23/18 15:09 Potassium 4.5 mmol/L (3.5-5.1) 10/23/18 15:09 Chloride 106 mmol/L (98-107) 10/23/18 15:09 Carbon Dioxide 28 mmol/L (21-32) 10/23/18 15:09 Anion Gap 7 MMOL/L (8-16) L 10/23/18 15:09 BUN 16.8 mg/dL (7-18) 10/23/18 15:09 Creatinine 0.8 mg/dL (0.55-1.3) 10/23/18 15:09 Random Glucose 94 mg/dL (74-106) 10/23/18 15:09 Calcium 9.1 mg/dL (8.5-10.1) 10/23/18 15:09 Total Bilirubin 0.2 mg/dL (0.2-1) 10/23/18 15:09 AST 12 U/L (15-37) L 10/23/18 15:09 ALT 18 U/L (13-61) 10/23/18 15:09 Alkaline Phosphatase 86 U/L (45-117) 10/23/18 15:09 Total Protein 7.5 g/dl (6.4-8.2) 10/23/18 15:09 Albumin 3.6 g/dl (3.4-5.0) 10/23/18 15:09 Home Medications Medication Instructions Recorded Sertraline HCl [Zoloft -] 25 mg PO DAILY #30 tablet 05/26/14 Hydrochlorothiazide 25 mg PO DAILY 06/25/16 Cephalexin [Keflex] 500 mg PO QID #39 capsule 10/22/18 Sulfamethoxazole/Trimethoprim 1 tab PO BID #19 tablet 10/22/18 [Bactrim Ds -] ASSESSMENT AND PLAN: Patient is a 63 y/o F with PMHx of HTN presents with Left 4th digit cellulitis. #Acute Left 4th digit Cellulitis due to puncture wound via sewing needle by the patient. On IV zosyn and vancomycin, ID consult, and Hand orthopedic sx (Dr. Simon) consulted, Finger XRay done on 10/22 #B/L Lower extremity swelling: In the setting of recent travel, Duplex is negative DVT px: Lovenox
--- NOTE | 2018-10-23 17:46 | HP ---
CHIEF COMPLAINT: Left 4 digit Cellulitis PCP: None HISTORY OF PRESENT ILLNESS: 63 y/o F with PMHx of HTN presents with Left 4th digit cellulitis. Patient recently returned from [facility] on 10/19. While eating breakfast on 10/18, patient noticed a blister on her Left 4th digit dorsal side between the PIP and DIP joints. She denies any trauma or bug/animal bites and cannot recall an inciting event. She then punctured the blister a sewwing pin where green pus drained however drainage did not provide any pain relief. [place] to the [place] on fr[place], she noticed the blister now had surrounding erythema at which point she tried hydrogen peroxide and Bacitracin. She continued the previously mentioned remedy without improvement until friday where she visited an Urgent care and was rx'ed PO Abx and a cream. She took 3 doses of the ABx without improvement and visited [facility] where she was rx'ed Keflex and bactram. This AM she woke with new streaking erythema on the medial side of her 4th digit prompting her to return to [facility]. She is unable to identify any triggering or relieving factors. Currently she has pain with palpation of PIP, DIP and MCP joints of the 4th digit, otherwise the pain is not present. Denies any associated fevers, chills, chest pain, SOB, Nausea, vomiting, constipation, dysuria, hemtauria. ER course was notable for: (1) Jessy Ramos (2) (3) Recent Travel: [facility], returned on 10/19 PAST MEDICAL HISTORY: HTN PAST SURGICAL HISTORY: Multiple orthopedic sx's (R Foot, R Knee and Left elbow arthroscopy) [facility] Social History: Smokinppd x 14 years; quit 30 years ago Alcohol: Social Drugs: Denies Family History: Mother with angina, Alzheimers dementia Father with Lung CA Sister with Brain CA Brother with Pancreatic CA Allergies levofloxacin [From Levaquin] Allergy (Verified 10/23/18 13:18) HOME MEDICATIONS: Home Medications Medication Instructions Recorded Torsemide 10 mg PO DAILY 10/23/18 REVIEW OF SYSTEMS As per HPI PHYSICAL EXAMINATION Vital Signs - 24 hr 10/23/18 13:19 Temperature 98.2 F Pulse Rate 70 Respiratory 16 Rate Blood Pressure 125/74 O2 Sat by Pulse 97 Oximetry (%) GENERAL: A&Ox3, NAD HEAD: NCAT EYES: PERRL, EOMI EARS, NOSE, THROAT: oropharynx clear without exudates. Moist mucous membranes. NECK: No JVD LUNGS: CTAB, No wheezes, no crackles HEART: Regular rate and rhythm, normal S1 and S2 without murmur ABDOMEN: Soft, nontender, not distended, + bowel sounds, no guarding, no rebound MUSCULOSKELETAL: No CVA tenderness. EXTREMITIES: No peripheral edema. NEUROLOGICAL: Cranial nerves II-XII intact. Normal speech. Gross sensation intact throughout. 5/5 muscle strength throughout. SKIN: Left 4th digit dorsal side blister with central scab wound btwn the DIP and PIP joints, Warm, Surrounding erythema, no active drainage or weeping. Limited ROM testing due to pain however pain worsens with digit flexion. 4th digit MCP, PIP and DIP tenderness to palpation. No wrist joint tenderness to palpation. 2+ pulses. Laboratory Results - last 24 hr 10/23/18 10/23/18 10/23/18 15:09 15:09 15:09 WBC 8.1 RBC 4.44 Hgb 12.5 Hct 37.9 MCV 85.3 MCH 28.2 MCHC 33.1 RDW 14.3 Plt Count 279 MPV 9.1 Absolute Neuts (auto) 5.6 Neutrophils % 69.2 Lymphocytes % 21.3 D Monocytes % 6.9 Eosinophils % 1.8 Basophils % 0.8 Nucleated RBC % 0 PT with INR 11.40 INR 0.97 Sodium 141 Potassium 4.5 Chloride 106 Carbon Dioxide 28 Anion Gap 7 L BUN 16.8 Creatinine 0.8 Est GFR (CKD-EPI)AfAm 91.58 Est GFR (CKD-EPI)NonAf 79.01 Random Glucose 94 Calcium 9.1 Total Bilirubin 0.2 AST 12 L ALT 18 Alkaline Phosphatase 86 Total Protein 7.5 Albumin 3.6 ASSESSMENT/PLAN: 63 y/o F with PMHx of HTN presents with Left 4th digit cellulitis. #Left 4th digit Cellulitis -Likely due to puncture wound via sewwing needle -Finger XRay done on 10/22 -ID (Dr. martinez) Consulted -Hand orthopedic sx (Dr. Simon) consulted -Given IV Vanco 1g and Pip/tazo 3.375 in ED, Continue 1g Vanco IV Daily and Pip/ Tazo 3.375g Q8h IV #B/L Lower extremity swelling -In the setting of recent travel -Duplex #FEN -No standing fluids -Lytes WNL, Replete PRN -Na controlled diet #PPx -DVT: Lovenox Dispo: Admit to [facility] Visit type - Emergency Visit Emergency Visit: Yes ED Registration Date: 10/23/18 Care time: The patient presented to the Emergency Department on the above date and was hospitalized for further evaluation of their emergent condition. - New Patient This patient is new to me today: Yes Date on this admission: 10/26/18 - Critical Care Critical Care patient: No ATTENDING PHYSICIAN STATEMENT I saw and evaluated the patient. I reviewed the resident's note and discussed the case with the resident. I agree with the resident's findings and plan as documented. SUBJECTIVE: OBJECTIVE: ASSESSMENT AND PLAN:
[2018-10-23] MEDS ORDERED: PIPERACILLIN/TAZOB 3.375 GM 3.375 GM in DEXTROSE 5%-WATER - 50 ML IVPB SCH (18:00)
[2018-10-23] MEDS ORDERED: PIPERACILLIN/TAZOBACTAM 3.375 GM VIAL IVPB ONE (21:31)
[2018-10-23] MEDS ORDERED: DEXTROSE 5%-WATER - 50 ML IVPB ONE (21:31)
[2018-10-23] MEDS: PIPERACILLIN/TAZOB 3.375 GM 3.375 GM in DEXTROSE 5%-WATER - 50 ML IVPB SCH (21:35)
[2018-10-24] MEDS: ACETAMINOPHEN 325 MG TABLET (FP) PO PRN ×3 (03:22→23:11)
[2018-10-24] MEDS ORDERED: DEXTROSE 5%-WATER - 50 ML IVPB ONE ×2 (05:26→13:01)
[2018-10-24] MEDS ORDERED: PIPERACILLIN/TAZOBACTAM 3.375 GM VIAL IVPB ONE ×2 (05:26→13:01)
[2018-10-24] MEDS: PIPERACILLIN/TAZOB 3.375 GM 3.375 GM in DEXTROSE 5%-WATER - 50 ML IVPB SCH ×2 (05:27→17:45)
[2018-10-24 09:30] LABS: BASO % 0.5 % (0-2.0); EOS % 1.9 % (0-4.5); HEMATOCRIT 35.4 % (32.4-45.2); HEMOGLOBIN 11.6 GM/dL (10.7-15.3); LYMPH % 20.2 % (8-40); MCH 27.9 pg (25.7-33.7); MCHC 32.9 g/dl (32.0-36.0); MEAN CELL VOLUME 84.8 fl (80-96); MEAN PLT VOLUME 9.5 fl (7.5-11.1); MONO % 5.9 % (3.8-10.2); NEUT % 71.5 % (42.8-82.8); PLATELET COUNT 254 K/MM3 (134-434); RBC 4.17 M/mm3 (3.60-5.2); RDW 14.4 % (11.6-15.6)
--- NOTE | 2018-10-24 09:39 | PN ---
Progress Note (short form) - Note Progress Note: Pt seen and examined. She is a 63 year old female patient with a recent history of a blister forming on her left ring finger, she popped it, it became infected , was put on 1 oral antibiotic (Augmentin), the infection got worse, she was admitted yesterday and has been on IV antibiotics for about 12 hours. PE Left ring finger with an obvious infection, a central bleb with surrounding cellulitis. Finger and hand are grossly NVI No volar tendon sheath infection Imp Left ring finger infection Rec This morning I was able to express about 3 cc of pus, and 3cc of blood. I then started warm soaks. I washed it with betadyne as well. Nursing will do warm soaks 2x/day Pt will maintain ROM, elevate Con't IV abx Pt does not need surgery at this time Will follow
[2018-10-24] MEDS: ENOXAPARIN NA (PORCINE) 40 MG/0.4 ML DISP.SYRIN SQ SCH (10:02)
[2018-10-24 10:04] LABS: ALBUMIN 3.2 g/dl (3.4-5.0); BILIRUBIN,TOTAL 0.5 mg/dL (0.2-1); BLOOD UREA NITROGEN 12.6 mg/dL (7-18); CALCIUM 8.7 mg/dL (8.5-10.1); CREATININE 0.8 mg/dL (0.55-1.3); MAGNESIUM 2.1 mg/dL (1.8-2.4); PHOSPHOROUS 3.2 mg/dL (2.5-4.9); POTASSIUM 4.4 mmol/L (3.5-5.1); TOT PROT 6.4 g/dl (6.4-8.2)
--- NOTE | 2018-10-24 11:32 | EKG ---
Test Reason : Blood Pressure : / mmHG Vent. Rate : 058 BPM Atrial Rate : 058 BPM P-R Int : 206 ms QRS Dur : 082 ms QT Int : 452 ms P-R-T Axes : 079 041 035 degrees QTc Int : 443 ms SINUS BRADYCARDIA OTHERWISE NORMAL ECG WHEN COMPARED WITH ECG OF 05-MAR-2017 00:49, CRITERIA FOR SEPTAL INFARCT ARE NO LONGER PRESENT Confirmed by STEVE RAINES, ELLIOTT ([id number]) on 10/24/2018 11:32:10 AM Referred By: Confirmed By:ELLIOTT WILSON MD
[2018-10-24 12:28] LABS: EPI CELLS 14.5 /HPF (0-5/HPF); HYALINE CASTS 8 /lpf (0-8); URINE APPEARANCE CLEAR; URINE BACTERIA 1.4 /hpf (NEGATIVE); URINE BILIRUBIN NEGATIVE (NEGATIVE); URINE COLOR YELLOW; URINE GLUCOSE (UA) NEGATIVE (NEGATIVE); URINE KETONE NEGATIVE (NEGATIVE); URINE LEUK ESTERASE 1+ (NEGATIVE); URINE NITRITE NEGATIVE (NEGATIVE); URINE PROTEIN NEGATIVE (NEGATIVE); URINE RBC 1 /hpf (0-4); URINE UROBILINOGEN 0.2 mg/dL (0.2-1.0); URINE WBC 9 /hpf (0-5)
--- NOTE | 2018-10-24 13:58 | PN ---
Progress Note (short form) - Note Progress Note: ID CONSULT DICTATED CELLULITIS/ SOFT TISSUE ABSCESS PENDING C/S EMPIRIC VANCOMYCIN/ZOSYN
[2018-10-24] MEDS: VANCOMYCIN 1 GRAM (PRE-DOCKED) 1,000 MG/250 ML BAG IVPB SCH (14:16)
--- NOTE | 2018-10-24 14:52 | PN ---
Progress Note (short form) - Note Progress Note: Patient is feeling better with no acute distress with no acute distress. Vital Signs Temperature 97.6 F 10/24/18 14:10 Pulse Rate 60 10/24/18 14:10 Respiratory Rate 18 10/24/18 09:00 Blood Pressure 127/74 10/24/18 14:10 O2 Sat by Pulse Oximetry (%) 99 10/23/18 21:00 GENERAL: The patient is awake, alert, and fully oriented, in no acute distress. HEAD: Normal with no signs of trauma. EYES: PERRL, extraocular movements intact, sclera anicteric, conjunctiva clear. ENT: Ears normal, oropharynx clear without exudates, moist mucous membranes. NECK: Trachea midline, full range of motion, supple. LUNGS: Breath sounds equal, clear to auscultation bilaterally, no wheezes, no crackles, no accessory muscle use. HEART: Regular rate and rhythm, S1, S2 without murmur, rub or gallop. ABDOMEN: Soft, NT,ND, normoactive bowel sounds, no guarding, no rebound, no hepatosplenomegaly, no masses. EXTREMITIES: 2+ pulses, warm, well-perfused, no edema. NEUROLOGICAL: Cranial nerves II through XII grossly intact. Normal speech, gait not observed. PSYCH: Normal mood, normal affect. SKIN: Warm, dry, normal turgor, no rashes or lesions noted CBCD WBC 7.0 K/mm3 (4.0-10.0) 10/24/18 08:20 RBC 4.17 M/mm3 (3.60-5.2) 10/24/18 08:20 Hgb 11.6 GM/dL (10.7-15.3) 10/24/18 08:20 Hct 35.4 % (32.4-45.2) 10/24/18 08:20 MCV 84.8 fl (80-96) 10/24/18 08:20 MCHC 32.9 g/dl (32.0-36.0) 10/24/18 08:20 RDW 14.4 % (11.6-15.6) 10/24/18 08:20 Plt Count 254 K/MM3 (134-434) 10/24/18 08:20 MPV 9.5 fl (7.5-11.1) 10/24/18 08:20 CMP Sodium 138 mmol/L (136-145) 10/24/18 08:20 Potassium 4.4 mmol/L (3.5-5.1) 10/24/18 08:20 Chloride 106 mmol/L (98-107) 10/24/18 08:20 Carbon Dioxide 24 mmol/L (21-32) 10/24/18 08:20 Anion Gap 8 MMOL/L (8-16) 10/24/18 08:20 BUN 12.6 mg/dL (7-18) 10/24/18 08:20 Creatinine 0.8 mg/dL (0.55-1.3) 10/24/18 08:20 Random Glucose 134 mg/dL (74-106) H 10/24/18 08:20 Calcium 8.7 mg/dL (8.5-10.1) 10/24/18 08:20 Total Bilirubin 0.5 mg/dL (0.2-1) 10/24/18 08:20 AST 11 U/L (15-37) L 10/24/18 08:20 ALT 16 U/L (13-61) 10/24/18 08:20 Alkaline Phosphatase 77 U/L (45-117) 10/24/18 08:20 Total Protein 6.4 g/dl (6.4-8.2) 10/24/18 08:20 Albumin 3.2 g/dl (3.4-5.0) L 10/24/18 08:20 Current Medications Generic Name Dose Route Start Last Admin Trade Name Gerberq PRN Reason Stop Dose Admin Acetaminophen 650 mg 10/23/18 17:48 10/24/18 10:01 Tylenol - PO 650 mg Q6H PRN Administration PAIN OR FEVER Enoxaparin Sodium 40 mg 10/24/18 10:00 10/24/18 10:02 Lovenox - SQ 40 mg DAILY GAUTAM Administration Vancomycin HCl 1,000 mg in 250 mls @ 166.667 mls/hr 10/24/18 14:00 10/24/18 14:16 Vancomycin (Pre-Docked) IVPB 166.667 mls/hr BID@0200,1400 GAUTAM Administration Protocol Piperacillin Sod/Tazobactam 50 mls @ 100 mls/hr 10/24/18 18:00 Sod 3.375 gm/ Dextrose IVPB Q8H-IV GAUTAM Protocol Home Medications Medication Instructions Recorded Torsemide 10 mg PO DAILY 10/23/18 Microbiology 10/22/18 22:32 Cellulitis Gram Stain - Final 10/22/18 22:23 Cellulitis Gram Stain - Final 10/22/18 22:32 Cellulitis Wound Culture - Preliminary NO GROWTH OBTAINED AFTER 24 HOURS INCUBATION, REINCUBATED. 10/22/18 22:23 Cellulitis Wound Culture - Preliminary NO GROWTH OBTAINED AFTER 24 HOURS INCUBATION, REINCUBATED. A/P: Patient is a 63 y/o F with PMHx of HTN presents with Left 4th digit cellulitis. #Acute Left 4th digit Cellulitis improving s/p I&D by Dr. Simon , continue IV zosyn and vancomycin, id on the case. #B/L Lower extremity swelling: In the setting of recent travel, Duplex is negative DVT px: Lovenox Visit type - Emergency Visit Emergency Visit: Yes ED Registration Date: 10/23/18 Care time: The patient presented to the Emergency Department on the above date and was hospitalized for further evaluation of their emergent condition. - New Patient This patient is new to me today: No - Critical Care Critical Care patient: No - Discharge Referral Referred to [facility] Med P.C.: No
[2018-10-24] MEDS ORDERED: VANCOMYCIN 1 GRAM (PRE-DOCKED) 1,000 MG/250 ML BAG IVPB ONE (18:00)
[2018-10-24] MEDS ORDERED: VANCOMYCIN 1,000 MG in DEXTROSE 5%-WATER - 250 ML IVPB SCH (18:00)
[2018-10-25] MEDS ORDERED: PIPERACILLIN/TAZOBACTAM 3.375 GM VIAL IVPB ONE ×3 (01:15→16:15)
[2018-10-25] MEDS ORDERED: DEXTROSE 5%-WATER - 50 ML IVPB ONE ×3 (01:15→16:15)
[2018-10-25] MEDS: PIPERACILLIN/TAZOB 3.375 GM 3.375 GM in DEXTROSE 5%-WATER - 50 ML IVPB SCH ×3 (01:27→17:24)
[2018-10-25] MEDS: VANCOMYCIN 1 GRAM (PRE-DOCKED) 1,000 MG/250 ML BAG IVPB SCH ×2 (01:59→15:18)
--- NOTE | 2018-10-25 08:14 | PN ---
Physical Exam: SUBJECTIVE: Patient seen and examined at bedside- patient states she was in a lot of pain overnight;she felt her finger was throbbing last night and she required tylenol for pain meds and she was expecting her finger to start to look better than it is currently looking-she denies any fevers/chills/ no N/V OBJECTIVE: Vital Signs Period Temp Pulse Resp BP Sys/Paiz Pulse Ox Last 24 Hr 97.4 F-98.4 F 60-73 14-18 116-138/58-74 98 GENERAL: The patient is awake, alert, and fully oriented, in no acute distress. EYES: PEERLA; EOMI; no scleral icterus NECK: no JVD; no lymphadenopathy LUNGS: CTA b/l; no rales, rhonchi or wheezing . HEART: Regular rate and rhythm, S1, S2 without murmur, rub or gallop. ABDOMEN: Soft, NT/ND +BS in all 4 quadrants UPPER EXTREMITY: left hand Left 4th digit dorsal side blister with central scab wound btwn the DIP and PIP joints; slightly erythema ; tenderness upon palpation LOWER EXTREMITIES: warm; well-perfused; no clubbing/cyanosis or edema PSYCH: Normal mood, normal affect. SKIN: Warm, dry, normal turgor, no rashes or lesions noted Laboratory Results - last 24 hr 10/24/18 10/24/18 10/24/18 08:20 08:20 10:15 WBC 7.0 RBC 4.17 Hgb 11.6 Hct 35.4 MCV 84.8 MCH 27.9 MCHC 32.9 RDW 14.4 Plt Count 254 MPV 9.5 Absolute Neuts (auto) 5.0 Neutrophils % 71.5 Lymphocytes % 20.2 Monocytes % 5.9 Eosinophils % 1.9 Basophils % 0.5 Nucleated RBC % 0 Sodium 138 Potassium 4.4 Chloride 106 Carbon Dioxide 24 Anion Gap 8 BUN 12.6 Creatinine 0.8 Est GFR (CKD-EPI)AfAm 91.58 Est GFR (CKD-EPI)NonAf 79.01 Random Glucose 134 H Calcium 8.7 Phosphorus 3.2 Magnesium 2.1 Total Bilirubin 0.5 AST 11 L ALT 16 Alkaline Phosphatase 77 Total Protein 6.4 Albumin 3.2 L Urine Color Yellow Urine Appearance Clear Urine pH 7.0 Ur Specific [place] 1.019 Urine Protein Negative Urine Glucose (UA) Negative Urine Ketones Negative Urine Blood Negative Urine Nitrite Negative Urine Bilirubin Negative Urine Urobilinogen 0.2 Ur Leukocyte Esterase 1+ H Urine WBC (Auto) 9 Urine RBC (Auto) 1 Urine Casts (Auto) 8 U Epithel Cells (Auto) 14.5 U Sm Round Cell (Auto) Negative Urine Bacteria (Auto) 1.4 Active Medications Generic Name Dose Route Start Last Admin Trade Name Freq PRN Reason Stop Dose Admin Acetaminophen 650 mg 10/23/18 17:48 10/24/18 23:11 Tylenol - PO 650 mg Q6H PRN Administration PAIN OR FEVER Enoxaparin Sodium 40 mg 10/24/18 10:00 10/24/18 10:02 Lovenox - SQ 40 mg DAILY GAUTAM Administration Vancomycin HCl 1,000 mg in 250 mls @ 166.667 mls/hr 10/24/18 14:00 10/25/18 01:59 Vancomycin (Pre-Docked) IVPB 166.667 mls/hr BID@0200,1400 GAUTAM Administration Protocol Piperacillin Sod/Tazobactam 50 mls @ 100 mls/hr 10/24/18 18:00 10/25/18 01:27 Sod 3.375 gm/ Dextrose IVPB 100 mls/hr Q8H-IV GAUTAM Administration Protocol ASSESSMENT/PLAN: 63 y/o F with PMHx of HTN presents with Left 4th digit cellulitis. #Left 4th digit Cellulitis -Likely due to puncture wound via sewwing needle - on board;took sample yesterday -ID (Dr. martinez) Consulted -f/u cx -vanc/zosyn day 3 #HTN -c/w torsemide #FEN -No standing fluids -Lytes WNL, Replete PRN -Na controlled diet #PPx -DVT: Lovenox Problem List - Problems (1) Cellulitis of finger of left hand Code(s): L03.012 - CELLULITIS OF LEFT FINGER Visit type - Emergency Visit Emergency Visit: Yes ED Registration Date: 10/23/18 Care time: The patient presented to the Emergency Department on the above date and was hospitalized for further evaluation of their emergent condition. - New Patient This patient is new to me today: Yes Date on this admission: 10/25/18 - Critical Care Critical Care patient: No ATTENDING PHYSICIAN STATEMENT I saw and evaluated the patient. I reviewed the resident's note and discussed the case with the resident. I agree with the resident's findings and plan as documented. SUBJECTIVE: OBJECTIVE: ASSESSMENT AND PLAN:
--- NOTE | 2018-10-25 10:16 | PN ---
Progress Note (short form) - Note Progress Note: Pt seen and examined. Her left finger infection is improving. + open + mild drainage smaller area of cellulitis + stiff Imp Improving cellulitis Rec Con't antibiotics Elevation ROM exercises Warm soaks 3x/day, 50/50 Hydrogen peroxide and sterile saline
[2018-10-25] MEDS: ENOXAPARIN NA (PORCINE) 40 MG/0.4 ML DISP.SYRIN SQ SCH (10:23)
--- NOTE | 2018-10-25 15:15 | PN ---
Teaching Attending Note Name of Resident: Liyah Mcclellan ATTENDING PHYSICIAN STATEMENT I saw and evaluated the patient. I reviewed the resident's note and discussed the case with the resident. I agree with the resident's findings and plan as documented. SUBJECTIVE: Patient is feeling better, no fever or chills, but her left 4th digit is improving, decreased swelling. OBJECTIVE: Vital Signs Temperature 98.4 F 10/25/18 06:07 Pulse Rate 59 L 10/25/18 10:00 Respiratory Rate 18 10/25/18 10:00 Blood Pressure 139/75 10/25/18 10:00 O2 Sat by Pulse Oximetry (%) 98 10/24/18 21:00 GENERAL: The patient is awake, alert, and fully oriented, in no acute distress. HEAD: Normal with no signs of trauma. EYES: PERRL, extraocular movements intact, sclera anicteric, conjunctiva clear. ENT: Ears normal, oropharynx clear without exudates, moist mucous membranes. NECK: Trachea midline, full range of motion, supple. LUNGS: Breath sounds equal, clear to auscultation bilaterally, no wheezes, no crackles, no accessory muscle use. HEART: Regular rate and rhythm, S1, S2 without murmur, rub or gallop. ABDOMEN: Soft, NT,ND, normoactive bowel sounds, no guarding, no rebound, no hepatosplenomegaly, no masses. EXTREMITIES: 2+ pulses, warm, well-perfused, 4th left digit swelling improving, no further discharge noted.able to bent her finger. NEUROLOGICAL: Cranial nerves II through XII grossly intact. Normal speech, gait not observed. PSYCH: Normal mood, normal affect. SKIN: Warm, dry, normal turgor, no rashes or lesions noted CBCD WBC 7.0 K/mm3 (4.0-10.0) 10/24/18 08:20 RBC 4.17 M/mm3 (3.60-5.2) 10/24/18 08:20 Hgb 11.6 GM/dL (10.7-15.3) 10/24/18 08:20 Hct 35.4 % (32.4-45.2) 10/24/18 08:20 MCV 84.8 fl (80-96) 10/24/18 08:20 MCHC 32.9 g/dl (32.0-36.0) 10/24/18 08:20 RDW 14.4 % (11.6-15.6) 10/24/18 08:20 Plt Count 254 K/MM3 (134-434) 10/24/18 08:20 MPV 9.5 fl (7.5-11.1) 10/24/18 08:20 CMP Sodium 138 mmol/L (136-145) 10/24/18 08:20 Potassium 4.4 mmol/L (3.5-5.1) 10/24/18 08:20 Chloride 106 mmol/L (98-107) 10/24/18 08:20 Carbon Dioxide 24 mmol/L (21-32) 10/24/18 08:20 Anion Gap 8 MMOL/L (8-16) 10/24/18 08:20 BUN 12.6 mg/dL (7-18) 10/24/18 08:20 Creatinine 0.8 mg/dL (0.55-1.3) 10/24/18 08:20 Random Glucose 134 mg/dL (74-106) H 10/24/18 08:20 Calcium 8.7 mg/dL (8.5-10.1) 10/24/18 08:20 Total Bilirubin 0.5 mg/dL (0.2-1) 10/24/18 08:20 AST 11 U/L (15-37) L 10/24/18 08:20 ALT 16 U/L (13-61) 10/24/18 08:20 Alkaline Phosphatase 77 U/L (45-117) 10/24/18 08:20 Total Protein 6.4 g/dl (6.4-8.2) 10/24/18 08:20 Albumin 3.2 g/dl (3.4-5.0) L 10/24/18 08:20 Current Medications Generic Name Dose Route Start Last Admin Trade Name Freq PRN Reason Stop Dose Admin Acetaminophen 650 mg 10/23/18 17:48 10/24/18 23:11 Tylenol - PO 650 mg Q6H PRN Administration PAIN OR FEVER Enoxaparin Sodium 40 mg 10/24/18 10:00 10/25/18 10:23 Lovenox - SQ 40 mg DAILY GAUTAM Administration Vancomycin HCl 1,000 mg in 250 mls @ 166.667 mls/hr 10/24/18 14:00 10/25/18 01:59 Vancomycin (Pre-Docked) IVPB 166.667 mls/hr BID@0200,1400 AGUTAM Administration Protocol Piperacillin Sod/Tazobactam 50 mls @ 100 mls/hr 10/24/18 18:00 10/25/18 10:23 Sod 3.375 gm/ Dextrose IVPB 100 mls/hr Q8H-IV GAUTAM Administration Protocol Home Medications Medication Instructions Recorded Torsemide 10 mg PO DAILY 10/23/18 Microbiology 10/24/18 14:28 Hand - Left Wound Culture - Preliminary Presumptive Mssa (Pbp2a Neg) ASSESSMENT AND PLAN: Patient is a 63 y/o F with PMHx of HTN presents with Left 4th digit cellulitis. #Acute Left 4th digit Cellulitis improving s/p I&D by Dr. Simon , continue IV zosyn and vancomycin, id on the case. cx is MSSa , once final cx and sensitivity resulted will switch to a different iv antibxs #B/L Lower extremity swelling: In the setting of recent travel, Duplex is negative DVT px: Lovenox
--- NOTE | 2018-10-25 16:26 | CONS ---
DATE OF CONSULTATION: DATE OF DICTATION: 10/25/2018 The patient is a 63-year-old female evaluated for cellulitis of the left 4th finger. The patient was vacationing in [place], when she developed a blister on the dorsal aspect of the left 4th finger on October 18, 2018. The patient ruptured the blister and treated the wound topically. She returned to the [place] on October 19, 2018. She went to an urgent care center on October 21, where she was evaluated. She presented to [facility] emergency room on October 22, 2018, where she was diagnosed with cellulitis and started on Bactrim and Keflex. Despite the oral antibiotic therapy, she had worsening pain, swelling, and erythema of the left 4th digit. She was admitted to the hospital on October 23, 2018, and empirically started on vancomycin and Zosyn. She was seen in consultation by Hand Surgery, purulent fluid was expressed from the wound. A culture was sent and is now pending. She denies prior history of serious soft tissue infection requiring hospitalization. No history of MRSA. She is non-diabetic. Past surgical history positive for biliary tract disease. Allergies to Levaquin. Medications include vancomycin, Zosyn, Tylenol, Lovenox. SOCIAL HISTORY: She resides in the community. Nonsmoker, nondrinker. SYSTEMS REVIEW: Neurologic: No loss of consciousness, seizure activity, or focal weakness. Cardiac: Negative chest pain or palpitations. Respiratory: Negative cough or sputum production. Gastrointestinal: Negative vomiting or diarrhea. Genitourinary: Positive for recent urinary tract infection. LABORATORY DATA: White count 7.0, hematocrit 35.4, platelet count 254, creatinine 0.8. Urinalysis: 9 white cells, cultures pending. PHYSICAL EXAMINATION: General: She is awake and alert, not acutely toxic appearing. Vital Signs: Temperature 97.6. Blood pressure 127/74. Pulse 60, regular. Respirations 14 per minute. Eyes: Sclerae anicteric. Heart Sounds: S1, S2. Lungs: Clear. Abdomen: Soft. Nontender. Extremities: Examination of the hand, there is fusiform swelling of the left 4th finger with an ulcerative lesion approximately 1 cm in diameter over the dorsal aspect of the PIP joint. There is diffuse swelling with surrounding erythema and decreased range of motion. No purulent drainage is noted. No lymphangitic streaking. IMPRESSION: 1. Cellulitis/soft tissue abscess of the left 4th finger. 2. Status post bedside drainage of pus from the finger. Await culture results. Continue empiric vancomycin and Zosyn, warm soaks, elevation. Surgical followup. Thank you for the kind referral. JAILYN EASTON M.D. [id number]
--- NOTE | 2018-10-25 21:51 | PN ---
Progress Note, Physician History of Present Illness: AWAKE,ALERT SEATED IN BED REPORTS LESS FINGER PAIN NO C/O FEVER/ CHILLS WOUND C/S PRESUMED MSSA - Current Medication List Current Medications: Active Medications Acetaminophen (Tylenol -) 650 mg PO Q6H PRN PRN Reason: PAIN OR FEVER Last Admin: 10/24/18 23:11 Dose: 650 mg Enoxaparin Sodium (Lovenox -) 40 mg SQ DAILY GAUTAM Last Admin: 10/25/18 10:23 Dose: 40 mg Vancomycin HCl (Vancomycin (Pre-Docked)) 1,000 mg in 250 mls @ 166.667 mls/hr IVPB BID@0200,1400 GAUTAM; Protocol Last Admin: 10/25/18 15:18 Dose: 166.667 mls/hr Piperacillin Sod/Tazobactam (Sod 3.375 gm/ Dextrose) 50 mls @ 100 mls/hr IVPB Q8H-IV GAUTAM; Protocol Last Admin: 10/25/18 17:24 Dose: 100 mls/hr - Objective Vital Signs: Vital Signs Temperature 98.4 F 10/25/18 06:07 Pulse Rate 64 10/25/18 20:05 Respiratory Rate 20 10/25/18 20:41 Blood Pressure 146/81 10/25/18 20:05 O2 Sat by Pulse Oximetry (%) 98 10/25/18 20:41 Constitutional: Yes: No Distress Cardiovascular: Yes: Regular Rate and Rhythm, S1, S2 Respiratory: Yes: CTA Bilaterally Gastrointestinal: Yes: Normal Bowel Sounds, Soft Extremities: Yes: Other (DECREASED FINGER SWELLING/ ERYTHEMA NO DRAINAGE) Labs: CBC, BMP 10/24/18 08:20 10/24/18 08:20 INR, PTT INR 0.97 (0.83-1.09) 10/23/18 15:09 Assessment/Plan FINGER CELLULITIS/ SOFT TISSUE ABSCESS S/P DRAINAGE AWAIT C/S CONTINUE ZOSYN/ VANCOMYCIN LOCAL WOUND CARE
[2018-10-26] MEDS ORDERED: PIPERACILLIN/TAZOBACTAM 3.375 GM VIAL IVPB ONE ×3 (00:56→17:05)
[2018-10-26] MEDS ORDERED: DEXTROSE 5%-WATER - 50 ML IVPB ONE ×3 (00:57→17:05)
[2018-10-26] MEDS: PIPERACILLIN/TAZOB 3.375 GM 3.375 GM in DEXTROSE 5%-WATER - 50 ML IVPB SCH ×2 (01:23→09:44)
[2018-10-26] MEDS: VANCOMYCIN 1 GRAM (PRE-DOCKED) 1,000 MG/250 ML BAG IVPB SCH ×2 (01:23→14:26)
[2018-10-26 07:34] LABS: BILIRUBIN,TOTAL 0.4 mg/dL (0.2-1); BLOOD UREA NITROGEN 11.2 mg/dL (7-18); CALCIUM 8.7 mg/dL (8.5-10.1); CREATININE 0.7 mg/dL (0.55-1.3); MAGNESIUM 2.4 mg/dL (1.8-2.4); POTASSIUM 4.6 mmol/L (3.5-5.1); TOT PROT 6.4 g/dl (6.4-8.2)
[2018-10-26 07:38] LABS: HEMATOCRIT 34.7 % (32.4-45.2); HEMOGLOBIN 11.1 GM/dL (10.7-15.3); MCH 27.4 pg (25.7-33.7); MEAN CELL VOLUME 85.5 fl (80-96); PLATELET COUNT 262 K/MM3 (134-434); RBC 4.06 M/mm3 (3.60-5.2); RDW 14.1 % (11.6-15.6); WHITE BLOOD COUNT 5.5 K/mm3 (4.0-10.0)
[2018-10-26] MEDS: ENOXAPARIN NA (PORCINE) 40 MG/0.4 ML DISP.SYRIN SQ SCH (09:43)
--- NOTE | 2018-10-26 14:13 | PN ---
Progress Note (short form) - Note Progress Note: Patient is felling better with no acute distress. the finger is improving. Vital Signs Temperature 97.9 F 10/26/18 14:00 Pulse Rate 58 L 10/26/18 14:00 Respiratory Rate 18 10/26/18 14:00 Blood Pressure 129/66 10/26/18 14:00 O2 Sat by Pulse Oximetry (%) 99 10/26/18 09:00 GENERAL: The patient is awake, alert, and fully oriented, in no acute distress. HEAD: Normal with no signs of trauma. EYES: PERRL, extraocular movements intact, sclera anicteric, conjunctiva clear. ENT: Ears normal, oropharynx clear without exudates, moist mucous membranes. NECK: Trachea midline, full range of motion, supple. LUNGS: Breath sounds equal, clear to auscultation bilaterally, no wheezes, no crackles, no accessory muscle use. HEART: Regular rate and rhythm, S1, S2 without murmur, rub or gallop. ABDOMEN: Soft, NT,ND, normoactive bowel sounds, no guarding, no rebound, no hepatosplenomegaly, no masses. EXTREMITIES: 2+ pulses, warm, well-perfused, 4th left digit swelling improving, no further discharge noted.able to bent her finger. NEUROLOGICAL: Cranial nerves II through XII grossly intact. Normal speech, gait not observed. PSYCH: Normal mood, normal affect. SKIN: Warm, dry, normal turgor, no rashes or lesions noted CBCD WBC 5.5 K/mm3 (4.0-10.0) 10/26/18 06:50 RBC 4.06 M/mm3 (3.60-5.2) 10/26/18 06:50 Hgb 11.1 GM/dL (10.7-15.3) 10/26/18 06:50 Hct 34.7 % (32.4-45.2) 10/26/18 06:50 MCV 85.5 fl (80-96) 10/26/18 06:50 MCHC 32.0 g/dl (32.0-36.0) 10/26/18 06:50 RDW 14.1 % (11.6-15.6) 10/26/18 06:50 Plt Count 262 K/MM3 (134-434) 10/26/18 06:50 MPV 9.0 fl (7.5-11.1) 10/26/18 06:50 CMP Sodium 140 mmol/L (136-145) 10/26/18 06:50 Potassium 4.6 mmol/L (3.5-5.1) 10/26/18 06:50 Chloride 107 mmol/L (98-107) 10/26/18 06:50 Carbon Dioxide 30 mmol/L (21-32) 10/26/18 06:50 Anion Gap 3 MMOL/L (8-16) L 10/26/18 06:50 BUN 11.2 mg/dL (7-18) 10/26/18 06:50 Creatinine 0.7 mg/dL (0.55-1.3) 10/26/18 06:50 Random Glucose 97 mg/dL (74-106) 10/26/18 06:50 Calcium 8.7 mg/dL (8.5-10.1) 10/26/18 06:50 Total Bilirubin 0.4 mg/dL (0.2-1) 10/26/18 06:50 AST 12 U/L (15-37) L 10/26/18 06:50 ALT 21 U/L (13-61) 10/26/18 06:50 Alkaline Phosphatase 71 U/L (45-117) 10/26/18 06:50 Total Protein 6.4 g/dl (6.4-8.2) 10/26/18 06:50 Albumin 3.0 g/dl (3.4-5.0) L 10/26/18 06:50 Current Medications Generic Name Dose Route Start Last Admin Trade Name Faby PRN Reason Stop Dose Admin Acetaminophen 650 mg 10/23/18 17:48 10/24/18 23:11 Tylenol - PO 650 mg Q6H PRN Administration PAIN OR FEVER Enoxaparin Sodium 40 mg 10/24/18 10:00 10/26/18 09:43 Lovenox - SQ 40 mg DAILY GAUTAM Administration Vancomycin HCl 1,000 mg in 250 mls @ 166.667 mls/hr 10/24/18 14:00 10/26/18 01:23 Vancomycin (Pre-Docked) IVPB 166.667 mls/hr BID@0200,1400 GAUTAM Administration Protocol Piperacillin Sod/Tazobactam 50 mls @ 100 mls/hr 10/24/18 18:00 10/26/18 09:44 Sod 3.375 gm/ Dextrose IVPB 100 mls/hr Q8H-IV GAUTAM Administration Protocol Microbiology 10/24/18 14:28 Hand - Left Gram Stain - Final 10/24/18 14:28 Hand - Left Wound Culture - Final Staphylococcus Aureus 10/24/18 15:20 Blood - Peripheral Venous Blood Culture - Preliminary NO GROWTH OBTAINED AFTER 24 HOURS, INCUBATION TO CONTINUE FOR 4 DAYS. 10/24/18 15:40 Blood - Peripheral Venous Blood Culture - Preliminary NO GROWTH OBTAINED AFTER 24 HOURS, INCUBATION TO CONTINUE FOR 4 DAYS. A/P: Patient is a 63 y/o F with PMHx of HTN presents with Left 4th digit cellulitis. #Acute Left 4th digit Cellulitis improving s/p I&D by Dr. Simon , sensitivity is back . further recommendations as per ID ,on IV zosyn and vancomycin, id on the case. cx is MSSa , final cx and sensitivity is reported. #B/L Lower extremity swelling: In the setting of recent travel, Duplex is negative DVT px: Lovenox Visit type - Emergency Visit Emergency Visit: Yes ED Registration Date: 10/23/18 Care time: The patient presented to the Emergency Department on the above date and was hospitalized for further evaluation of their emergent condition. - New Patient This patient is new to me today: No - Critical Care Critical Care patient: No - Discharge Referral Referred to [facility] Med P.C.: No
--- NOTE | 2018-10-26 16:34 | PN ---
Progress Note (short form) - Note Progress Note: Pt's left ring finger infection much improved, less erythema, not hot, less swollen, better ROM although still stiff, very minimal drainage. Rec Will switch at some point from IV to PO antibiotics Still elevate left hand Active and passive ROM exercises No surgery needed
--- NOTE | 2018-10-26 19:23 | PN ---
Progress Note, Physician History of Present Illness: AWAKE,ALERT SEATED IN BED REPORTS LESS FINGER PAIN NO C/O FEVER/ CHILLS WOUND C/S MSSA - Current Medication List Current Medications: Active Medications Acetaminophen (Tylenol -) 650 mg PO Q6H PRN PRN Reason: PAIN OR FEVER Last Admin: 10/24/18 23:11 Dose: 650 mg Enoxaparin Sodium (Lovenox -) 40 mg SQ DAILY GAUTAM Last Admin: 10/26/18 09:43 Dose: 40 mg Cefazolin Sodium 2 gm/ (Dextrose) 50 mls @ 200 mls/hr IVPB Q8H-IV GAUTAM - Objective Vital Signs: Vital Signs Temperature 97.9 F 10/26/18 14:00 Pulse Rate 58 L 10/26/18 14:00 Respiratory Rate 18 10/26/18 14:00 Blood Pressure 129/66 10/26/18 14:00 O2 Sat by Pulse Oximetry (%) 99 10/26/18 09:00 Constitutional: Yes: No Distress Eyes: Yes: Conjunctiva Clear Cardiovascular: Yes: Regular Rate and Rhythm, S1, S2 Respiratory: Yes: CTA Bilaterally Gastrointestinal: Yes: Normal Bowel Sounds, Soft Extremities: Yes: Other (DECREASED ERYTHEMA/ SWELLING OF FINGER NO DRAINAGE) Labs: CBC, BMP 10/26/18 06:50 10/26/18 06:50 INR, PTT INR 0.97 (0.83-1.09) 10/23/18 15:09 Assessment/Plan FINGER CELLULITIS/ SOFT TISSUE ABSCESS S/P DRAINAGE MSSA SUBSTITUTE CEFAZOLIN LOCAL WOUND CARE SWITCH TO PO AUGMENTIN AM
[2018-10-26] MEDS: CEFAZOLIN 2 GM/D5W 2 GM/50 ML ML IVPB SCH (20:08)
[2018-10-27] MEDS: CEFAZOLIN 2 GM/D5W 2 GM/50 ML ML IVPB SCH ×2 (02:12→09:17)
[2018-10-27] MEDS: ENOXAPARIN NA (PORCINE) 40 MG/0.4 ML DISP.SYRIN SQ SCH (09:16)
[2018-10-27 11:42] VITALS: PULSE 62; TEMP 98.5
[2018-10-27 11:50] VITALS: BP 145/86
--- NOTE | 2018-10-27 13:15 | DS ---
Physical Exam: SUBJECTIVE: Patient seen and examined. Patient was lying comfortably in bed stating that her finger is alot better and that she can actually bend it now. no acute complaints. OBJECTIVE: Vital Signs Period Temp Pulse Resp BP Sys/Paiz Pulse Ox Last 24 Hr 97.6 F-99.6 F 58-72 18-19 119-145/56-86 98-100 PHYSICAL EXAM GENERAL: The patient is awake, alert, and fully oriented, in no acute distress. HEAD: Normal with no signs of trauma. ENT: oropharynx clear without exudates, moist mucous membranes. LUNGS: Breath sounds equal, clear to auscultation bilaterally, no wheezes, no crackles, no accessory muscle use. HEART: Regular rate and rhythm, S1, S2 without murmur, rub or gallop. ABDOMEN: Soft, nontender, nondistended, normoactive bowel sounds, no guarding, no rebound, no hepatosplenomegaly, no masses. EXTREMITIES: 2+ pulses, warm, well-perfused, no edema. SKIN: Warm, dry, normal turgor, left 4th digit healing lesion noted. LABS CBC,CMP WBC 5.5 K/mm3 (4.0-10.0) 10/26/18 06:50 RBC 4.06 M/mm3 (3.60-5.2) 10/26/18 06:50 Hgb 11.1 GM/dL (10.7-15.3) 10/26/18 06:50 Hct 34.7 % (32.4-45.2) 10/26/18 06:50 MCV 85.5 fl (80-96) 10/26/18 06:50 MCH 27.4 pg (25.7-33.7) 10/26/18 06:50 MCHC 32.0 g/dl (32.0-36.0) 10/26/18 06:50 RDW 14.1 % (11.6-15.6) 10/26/18 06:50 Plt Count 262 K/MM3 (134-434) 10/26/18 06:50 MPV 9.0 fl (7.5-11.1) 10/26/18 06:50 Absolute Neuts (auto) 5.0 K/mm3 (1.5-8.0) 10/24/18 08:20 Neutrophils % 71.5 % (42.8-82.8) 10/24/18 08:20 Lymphocytes % 20.2 % (8-40) 10/24/18 08:20 Monocytes % 5.9 % (3.8-10.2) 10/24/18 08:20 Eosinophils % 1.9 % (0-4.5) 10/24/18 08:20 Basophils % 0.5 % (0-2.0) 10/24/18 08:20 Nucleated RBC % 0 % (0-0) 10/24/18 08:20 Sodium 140 mmol/L (136-145) 10/26/18 06:50 Potassium 4.6 mmol/L (3.5-5.1) 10/26/18 06:50 Chloride 107 mmol/L (98-107) 10/26/18 06:50 Carbon Dioxide 30 mmol/L (21-32) 10/26/18 06:50 Anion Gap 3 MMOL/L (8-16) L 10/26/18 06:50 BUN 11.2 mg/dL (7-18) 10/26/18 06:50 Creatinine 0.7 mg/dL (0.55-1.3) 10/26/18 06:50 Est GFR (CKD-EPI)AfAm 107.62 10/26/18 06:50 Est GFR (CKD-EPI)NonAf 92.86 10/26/18 06:50 Random Glucose 97 mg/dL (74-106) 10/26/18 06:50 Calcium 8.7 mg/dL (8.5-10.1) 10/26/18 06:50 Phosphorus 3.2 mg/dL (2.5-4.9) 10/24/18 08:20 Magnesium 2.4 mg/dL (1.8-2.4) 10/26/18 06:50 Total Bilirubin 0.4 mg/dL (0.2-1) 10/26/18 06:50 AST 12 U/L (15-37) L 10/26/18 06:50 ALT 21 U/L (13-61) 10/26/18 06:50 Alkaline Phosphatase 71 U/L (45-117) 10/26/18 06:50 Total Protein 6.4 g/dl (6.4-8.2) 10/26/18 06:50 Albumin 3.0 g/dl (3.4-5.0) L 10/26/18 06:50 HOSPITAL COURSE: Date of Admission:10/23/18 63 y/o F with PMHx of HTN presents with Left 4th digit cellulitis. In the ED, patient received IV vancomycin and zosyn. On floors, ID was consulted and recommended continuing IV vanco and zosyn. Patient's symptoms improved significantly and was discharged on Augmentin 875 mg orally twice per day with food for 7 days. Patient is to follow up with Dr Strickland the infectious disease specialist in one week and with her PCP Dr Davies also in one week. Date of Discharge: 10/27/18 Minutes to complete discharge: 35 Discharge Summary Reason For Visit: CELLULITIS OF FINGER OF LEFT HAND Condition: Stable - Instructions Diet, Activity, Other Instructions: You came into the ED because of an infection in your left 4th digit.You were seen by both infectious disease and an orthopedist while you were here. We have been treating you with IV antibiotics and your symptoms improved significantly. We will be discharging you on oral antibiotics. Medications: Please resume your home medications in addition; Please take the antibiotic Augmentin 875 mg orally twice per day with food for 7 days 10/28/18-11/03/18, continue soaking your finger till its completely dried up and closed the wound. Follow up: Please follow up with Dr. Davies within one week Please follow up with Dr Strickland infectious disease within one week If you begin to experience bleeding, shortness of breath, chest pain please return to the ED immediately Referrals: Nate Strickland MD [Staff Physician] - 1 Week Jennifer Davies MD [Primary Care Provider] - 1 Week Disposition: HOME - Home Medications Comprehensive Discharge Medication List: Ambulatory Orders Torsemide 10 mg PO DAILY 10/23/18 Problem List - Problems (1) Cellulitis of finger of left hand Code(s): L03.012 - CELLULITIS OF LEFT FINGER This patient is new to me today: No Emergency Visit: Yes ED Registration Date: 10/23/18 Care time: The patient presented to the Emergency Department on the above date and was hospitalized for further evaluation of their emergent condition. Critical Care patient: No - Discharge Referral Referred to [facility] No ATTENDING PHYSICIAN STATEMENT I saw and evaluated the patient. I reviewed the resident's note and discussed the case with the resident. I agree with the resident's findings and plan as documented. SUBJECTIVE: OBJECTIVE: ASSESSMENT AND PLAN:
--- NOTE | 2018-10-27 14:16 | PN ---
Teaching Attending Note Name of Resident: Ynes Quezada ATTENDING PHYSICIAN STATEMENT I saw and evaluated the patient. I reviewed the resident's note and discussed the case with the resident. I agree with the resident's findings and plan as documented. SUBJECTIVE: Patient is feeling better with no acute distress, no nausea or vomiting, no fever or chills. Able to bend her finger completely OBJECTIVE: Vital Signs Temperature 98.5 F 10/27/18 09:00 Pulse Rate 62 10/27/18 09:00 Respiratory Rate 19 10/27/18 09:00 Blood Pressure 145/86 10/27/18 09:00 O2 Sat by Pulse Oximetry (%) 100 10/27/18 09:00 GENERAL: The patient is awake, alert, and fully oriented, in no acute distress. HEAD: Normal with no signs of trauma. EYES: PERRL, extraocular movements intact, sclera anicteric, conjunctiva clear. ENT: Ears normal, oropharynx clear without exudates, moist mucous membranes. NECK: Trachea midline, full range of motion, supple. LUNGS: Breath sounds equal, clear to auscultation bilaterally, no wheezes, no crackles, no accessory muscle use. HEART: Regular rate and rhythm, S1, S2 without murmur, rub or gallop. ABDOMEN: Soft, NT,ND, normoactive bowel sounds, no guarding, no rebound, no hepatosplenomegaly, no masses. EXTREMITIES: 2+ pulses, warm, well-perfused, 4th left digit swelling improved , the wound is almost closed and dried, no further discharge noted.able to bent her finger now. NEUROLOGICAL: Cranial nerves II through XII grossly intact. Normal speech, gait not observed. PSYCH: Normal mood, normal affect. SKIN: Warm, dry, normal turgor, no rashes or lesions noted CBCD WBC 5.5 K/mm3 (4.0-10.0) 10/26/18 06:50 RBC 4.06 M/mm3 (3.60-5.2) 10/26/18 06:50 Hgb 11.1 GM/dL (10.7-15.3) 10/26/18 06:50 Hct 34.7 % (32.4-45.2) 10/26/18 06:50 MCV 85.5 fl (80-96) 10/26/18 06:50 MCHC 32.0 g/dl (32.0-36.0) 10/26/18 06:50 RDW 14.1 % (11.6-15.6) 10/26/18 06:50 Plt Count 262 K/MM3 (134-434) 10/26/18 06:50 MPV 9.0 fl (7.5-11.1) 10/26/18 06:50 CMP Sodium 140 mmol/L (136-145) 10/26/18 06:50 Potassium 4.6 mmol/L (3.5-5.1) 10/26/18 06:50 Chloride 107 mmol/L (98-107) 10/26/18 06:50 Carbon Dioxide 30 mmol/L (21-32) 10/26/18 06:50 Anion Gap 3 MMOL/L (8-16) L 10/26/18 06:50 BUN 11.2 mg/dL (7-18) 10/26/18 06:50 Creatinine 0.7 mg/dL (0.55-1.3) 10/26/18 06:50 Random Glucose 97 mg/dL (74-106) 10/26/18 06:50 Calcium 8.7 mg/dL (8.5-10.1) 10/26/18 06:50 Total Bilirubin 0.4 mg/dL (0.2-1) 10/26/18 06:50 AST 12 U/L (15-37) L 10/26/18 06:50 ALT 21 U/L (13-61) 10/26/18 06:50 Alkaline Phosphatase 71 U/L (45-117) 10/26/18 06:50 Total Protein 6.4 g/dl (6.4-8.2) 10/26/18 06:50 Albumin 3.0 g/dl (3.4-5.0) L 10/26/18 06:50 Home Medications Medication Instructions Recorded Torsemide 10 mg PO DAILY 10/23/18 Microbiology 10/24/18 15:20 Blood - Peripheral Venous Blood Culture - Preliminary NO GROWTH OBTAINED AFTER 48 HOURS, INCUBATION TO CONTINUE FOR 3 DAYS. 10/24/18 15:40 Blood - Peripheral Venous Blood Culture - Preliminary NO GROWTH OBTAINED AFTER 48 HOURS, INCUBATION TO CONTINUE FOR 3 DAYS. 10/24/18 14:28 Hand - Left Gram Stain - Final 08/31/19 14:28 Hand - Left Wound Culture - Final Staphylococcus Aureus ASSESSMENT AND PLAN: Patient is a 63 y/o F with PMHx of HTN presents with Left 4th digit cellulitis. #Acute Left 4th digit Cellulitis improved s/p I&D by Dr. Simon , s/p Zosyn and Vancomycin , sensitivity is back sensitive to Augmentin 875mg po bid,will discharge the patient on Augmentin as per ID 875mg po bid x 7 more days total of 10 days total, cx is MSSa , final cx and sensitivity is reported. Patient has the medication at home, will continue to take her own supply that she recently got. # HTN: Monitor , follow with primary and continue home meds. Diet and lifestyle modification suggested to the patient. #B/L Lower extremity swelling: In the setting of recent travel, Duplex is negative discharge patient home on Augmentin , follow up with primary and ID within a week.
== END 2018-10-27 12:09 | disposition home or self-care (01) | DRG 603 ==
LOC: JER 12:51 → JERBED 16:57 → J6S 18:06
PROVIDERS: ADMIT Internal Medicine; ATTEND Internal Medicine
DX: L03.012 Cellulitis of left finger (principal); I10 Essential (primary) hypertension
CPT/HCPCS: 36415; 80053; 81003; 83735; 84100; 85025; 85027; 85610; 87040; 87070; 87186; 87205; 93005; 93010; 93970-TC; 97116-GP; 97161-GP; 99284-25; J0131

== ENCOUNTER 2018-10-31 10:02 | Emergency (ER) | payer BC ==
[2018-10-31 10:07] VITALS: BP 141/79; PULSE 67; TEMP 97.7; BMI 36.0
[2018-10-31] MEDS ORDERED: DEXAMETHASONE SOD PHOSPHATE 10 MG/1 ML VIAL IVPUSH ONE (10:55)
[2018-10-31] MEDS ORDERED: SODIUM CHLORIDE 0.9% 500 ML INFUS.BAG IV ONE (10:55)
--- NOTE | 2018-10-31 11:01 | PDOC ---
History of Present Illness - General Chief Complaint: Rash Stated Complaint: RASH Time Seen by Provider: 10/31/18 10:08 - History of Present Illness Initial Comments: 10/31/18 10:57 CHIEF COMPLAINT: rash HISTORY OF PRESENT ILLNESS: 63 yo F recently discharged from this hospital 4 days after inpatient treatment for cellulitis of the finger presents to fast track with rash to entire body. Patient states she was given "a whole bunch" of IV medications and took one day of antibiotics after being discharged and then stopped. Per EMR patient received vanc, zosyn, and ancef throughout the course of her last admission. She states that last night she noticed "a few bumps" to the right side of her neck and then this morning broke out into a rash across her entire body. She denies any swelling to her lips, tongue, mouth , throat, neck, or face, denies any difficulty breathing. No recent travel or sick contacts. PAST MEDICAL HISTORY: Denies past medical history FAMILY HISTORY: Denies SOCIAL HISTORY: Denies tobacco, alcohol, illicit drug use. SURGICAL HISTORY: Denies ALLERGIES: levofloxacin REVIEW OF SYSTEMS General/Constitutional: Denies fever or chills. Denies weakness, weight change. HEENT: Denies change in vision. Denies ear pain or discharge. Denies sore throat. Cardiovascular: Denies chest pain or shortness of breath. Respiratory: Denies cough, wheezing, or hemoptysis. Gastrointestinal: Denies nausea, vomiting, diarrhea or constipation. Denies rectal bleeding. Genitourinary: Denies dysuria, frequency, or change in urination. Musculoskeletal: Denies joint or muscle swelling or pain. Denies neck or back pain. Skin: Rash to entire body. Neurologic: Denies headache, vertigo, loss of consciousness, or loss of sensation. PHYSICAL EXAM General Appearance: Well-appearing, appropriately dressed. No apparent distress , no intoxication. HEENT: EOMI, PERRLA, normal ENT inspection, normal voice, TMs normal, pharynx normal. No conjunctival pallor. No photophobia, scleral icterus. Neck: Supple. Trachea midline. No tenderness, rigidity, carotid bruit, stridor , lymphadenopathy, or thyromegaly. Respiratory/Chest: Lungs CTAB. No shortness of breath, chest tenderness, respiratory distress, accessory muscle use. No crackles, rales, rhonchi, stridor , wheezing, dullness Cardiovascular: RRR. S1, S2. No JVD, murmur, bradycardia, tachycardia. Vascular Pulses: Dorsalis-Pedis (R): 2+, Dorsalis-Pedis (L): 2+ Gastrointestinal/Abdominal: Normal bowel sounds. Abdomen soft, non-distended. No tenderness or rebound tenderness. No organomegaly, pulsatile mass, guarding , hernia, hepatomegaly, splenomegaly. Lymphatic: No adenopathy, tenderness. Musculoskeletal/Extremities: Normal inspection. FROM of all extremities, normal capillary refill. Pelvis Stable. No CVA tenderness. No tenderness to extremities, pedal edema, swelling, erythema or deformity. Integumentary: Generalized erythematous, macular, pruritic rash to entire body. Appropriate color, dry, warm. No cyanosis, erythema, jaundice or rash Neurologic: lip cutter II-XII intact. Fully oriented, alert. Appropriate mood/affect. Motor strength 5/5. No appreciable EOM palsy, facial droop or sensory deficit. Past History - Past Medical History Allergies/Adverse Reactions: Allergies Allergy/AdvReac Type Severity Reaction Status Date / Time levofloxacin [From Levaquin] Allergy Verified 10/31/18 10:07 Home Medications: Ambulatory Orders Torsemide 10 mg PO DAILY 10/23/18 EPINEPHrine (EPI-PEN 0.3MG) [Epipen 0.3MG -] 0.3 mg IM ASDIR #2 pens 10/31/18 Anemia: No Asthma: No Cancer: No Cardiac Disorders: Yes (angina) CVA: No COPD: No CHF: No Dementia: No Diabetes: No GI Disorders: Yes Disorders: No HTN: Yes Hypercholesterolemia: Yes Liver Disease: No Psychiatric Problems: Yes (ANXIETY) Seizures: No Thyroid Disease: No - Surgical History Abdominal Surgery: No Appendectomy: No Cardiac Surgery: Yes (cardiac catheterization) Cholecystectomy: Yes Lung Surgery: No Neurologic Surgery: No Orthopedic Surgery: Yes (ARTHROSCOPY KNEE, ELBOW,ANKLE) - Immunization History Immunization Up to Date: Yes - Suicide/Smoking/Psychosocial Hx Smoking Status: Yes Smoking History: Never smoked Have you smoked in the past 12 months: No Number of Cigarettes Smoked Daily: 0 If you are a former smoker, when did you quit?: 18YRS Information on smoking cessation initiated: Yes Hx Alcohol Use: No Drug/Substance Use Hx: No Substance Use Type: None Hx Substance Use Treatment: No *Physical Exam - Vital Signs Last Vital Signs Temp Pulse Resp BP Pulse Ox 97.7 F 67 18 141/79 99 10/31/18 10:04 10/31/18 10:04 10/31/18 10:04 10/31/18 10:04 10/31/18 10:04 Medical Decision Making - Medical Decision Making 10/31/18 11:35 63 yo F recently discharged from this hospital 4 days after inpatient treatment for cellulitis of the finger presents to fast track with rash to entire body. -darlene concepcion, IVF 10/31/18 11:57 Advised patient to take medication as prescribed and follow up with pot press operator for further allergy testing. Advised patient of signs and symptoms for return to ED. Patient verbalized understanding and agrees to plan. *DC/Admit/Observation/Transfer Diagnosis at time of Disposition: Urticaria - Discharge Dispostion Disposition: HOME Condition at time of disposition: Stable Decision to Admit order: No - Prescriptions Prescriptions: EPINEPHrine (EPI-PEN 0.3MG) [Epipen 0.3MG -] 0.3 mg IM ASDIR #2 pens - Referrals Referrals: Jennifer Davies MD [Primary Care Provider] - - Patient Instructions Printed Discharge Instructions: DI for Hives Additional Instructions: As discussed, please follow up with a pot press operator or chimney construction supervisor to determine what allergens you may have. If you develop ANY swelling to your lips, tongue, face, throat, neck, or mouth, or you develop any difficulty breathing or swallowing, please use the epipen and proceed to the nearest ER immediately. - Post Discharge Activity
[2018-10-31] MEDS ORDERED: DEXAMETHASONE SOD PHOSPHATE 10 MG/1 ML VIAL ONE (11:07)
== END 2018-10-31 12:26 | disposition home or self-care (01) ==
LOC: JERFT 10:02
PROC: 3E033GC Introduction of Other Therapeutic Substance into Peripheral Vein, Percutaneous Approach (ICD-10-PCS; principal; 2018-10-31)
PROC: 3E0333Z Introduction of Anti-inflammatory into Peripheral Vein, Percutaneous Approach (ICD-10-PCS; 2018-10-31)
DX: L50.9 Urticaria, unspecified (principal)
CPT/HCPCS: 99282-25; J1100

== ENCOUNTER 2019-04-09 20:57 | Emergency (ER) | payer BC ==
[2019-04-09 21:08] VITALS: BMI 37.5
--- NOTE | 2019-04-09 21:36 | PDOC ---
History of Present Illness - General Chief Complaint: Pain Stated Complaint: LEFT ARM PAIN Time Seen by Provider: 04/09/19 21:35 History Source: Patient Exam Limitations: No Limitations - History of Present Illness Initial Comments: 04/09/19 22:18 64yF w PMHx CHF presenting w 1d moderate L arm and L chest pressure. Sudden onset yesterday morning while resting, 2nd worsening pain this evening w sheryl headache and vomiting x3. Took 324 aspirin today. Recently started torsemide within past month for BLE swelling. Denies fever cough SOB ABD pain, urinary, bowel mvmt changes. Past History - Past Medical History Allergies/Adverse Reactions: Allergies Allergy/AdvReac Type Severity Reaction Status Date / Time levofloxacin [From Levaquin] Allergy Verified 04/09/19 21:08 Home Medications: Ambulatory Orders Torsemide 10 mg PO DAILY 10/23/18 EPINEPHrine (EPI-PEN 0.3MG) [Epipen 0.3MG -] 0.3 mg IM ASDIR #2 pens 10/31/18 Anemia: No Asthma: No Cancer: No Cardiac Disorders: Yes (angina) CVA: No COPD: No CHF: No Dementia: No Diabetes: No GI Disorders: Yes Disorders: No HTN: Yes Hypercholesterolemia: Yes Liver Disease: No Psychiatric Problems: Yes (ANXIETY) Seizures: No Thyroid Disease: No - Surgical History Abdominal Surgery: No Appendectomy: No Cardiac Surgery: Yes (cardiac catheterization) Cholecystectomy: Yes Lung Surgery: No Neurologic Surgery: No Orthopedic Surgery: Yes (ARTHROSCOPY KNEE, ELBOW,ANKLE) - Immunization History Immunization Up to Date: Yes - Psycho Social/Smoking Cessation Hx Smoking Status: Yes Smoking History: Never smoked Have you smoked in the past 12 months: No Number of Cigarettes Smoked Daily: 0 If you are a former smoker, when did you quit?: 18YRS Hx Alcohol Use: No Drug/Substance Use Hx: No Substance Use Type: None Hx Substance Use Treatment: No Review of Systems - Review of Systems Constitutional: No: Chills, Fever HEENTM: No: Eye Pain, Nose Pain Respiratory: No: Cough, Shortness of Breath Cardiac (ROS): Yes: Chest Pain. No: Palpitations ABD/GI: Yes: Nausea, Vomiting. No: Abdominal Distended, Constipated, Diarrhea : No: Burning, Dysuria Musculoskeletal: No: Back Pain, Joint Pain Integumentary: No: Bruising, Dryness Neurological: Yes: Headache. No: Seizure Psychiatric: No: Anxiety, Depression Endocrine: No: Excessive Sweating, Flushing, Intolerance to Cold, Intolerance to Heat Hematologic/Lymphatic: No: Anemia, Blood Clots *Physical Exam - Vital Signs Last Vital Signs Temp Pulse Resp BP Pulse Ox 97.8 F 77 18 179/80 H 96 04/09/19 21:05 04/09/19 21:05 04/09/19 21:05 04/09/19 21:05 04/09/19 21:05 - Physical Exam General Appearance: Yes: Nourished, Appropriately Dressed, Mild Distress HEENT: positive: EOMI, KADIE, Normal Voice. negative: Scleral Icterus (R), Scleral Icterus (L) Respiratory/Chest: positive: Lungs Clear, Normal Breath Sounds. negative: Chest Tender, Respiratory Distress Cardiovascular: positive: Regular Rhythm, Regular Rate, S1, S2. negative: Edema , Murmur Gastrointestinal/Abdominal: positive: Normal Bowel Sounds, Flat, Soft. negative : Tender, Organomegaly Extremity: positive: Normal Capillary Refill Integumentary: positive: Normal Color. negative: Dry Neurologic: positive: salvage grinder II-XII NML intact, Fully Oriented, Alert, Normal Mood/ Affect, Normal Response, Motor Strength 5/5, Responsive. negative: Numbness, Sensory Deficit, Confused, Disoriented ED Treatment Course - LABORATORY CBC & Chemistry Diagram: 04/09/19 22:20 04/09/19 22:20 Medical Decision Making - Medical Decision Making 04/09/19 21:[address] - no acute bleed/infarct EKG - sinus rhythm w premature SVC, HR 72, QTc 451, no ST changes CXR --- 64yF w PMHx CHF presenting w 1d L arm/ chest pressure, headache, vomiting d/t anxiety. Low concern for ACS (neg trop, no ST changes) vs acute brain bleed/ infarct (none seen head CT). Given tylenol, zofran w relief. DC home w cards f/u Signed out to night team - pending CXR - DC home if CXR normal Discharge - Discharge Information Problems reviewed: Yes Clinical Impression/Diagnosis: Chest pain Qualifiers: Chest pain type: unspecified Qualified Code(s): R07.9 - Chest pain, unspecified Condition: Improved Disposition: HOME - Follow up/Referral Referrals: Jennifer Davies MD [Primary Care Provider] - - Patient Discharge Instructions - Post Discharge Activity
[2019-04-09] MEDS ORDERED: ONDANSETRON 4 MG/2 ML VIAL IVPB ONE (22:04)
[2019-04-09] MEDS ORDERED: ACETAMINOPHEN 1000 MG/100 ML VIAL (NON FORMULARY) IVPB ONE (22:04)
[2019-04-09] MEDS ORDERED: ACETAMINOPHEN INJECTION 100 ML IVPB ONE (22:20)
[2019-04-09] MEDS ORDERED: ONDANSETRON 4 MG/2 ML VIAL ONE (22:20)
[2019-04-09 22:55] LABS: EOS % 2.1 % (0-4.5); HEMATOCRIT 36.3 % (32.4-45.2); HEMOGLOBIN 11.9 GM/dL (10.7-15.3); LYMPH % 31.6 % (8-40); MCH 28.1 pg (25.7-33.7); MCHC 32.7 g/dl (32.0-36.0); MEAN CELL VOLUME 85.7 fl (80-96); MEAN PLT VOLUME 9.5 fl (7.5-11.1); MONO % 7.4 % (3.8-10.2); NEUT % 57.9 % (42.8-82.8); PLATELET COUNT 272 K/MM3 (134-434); RBC 4.23 M/mm3 (3.60-5.2); RDW 14.2 % (11.6-15.6)
--- NOTE | 2019-04-09 23:06 | PDOC ---
Documentation entered by Tobi Tavera SCRIBE, acting as scribe for Lindsey Vila MD. Lindsey Vila MD: This documentation has been prepared by the Ayse reeves Angel, SCRIBE, under my direction and personally reviewed by me in its entirety. I confirm that the documentation accurately reflects all work, treatment, procedures, and medical decision making performed by me. Attending Attestation - Resident Resident Name: Shai Rivera - ED Attending Attestation I have performed the following: I have examined & evaluated the patient, The case was reviewed & discussed with the resident, I agree w/resident's findings & plan - HPI HPI: 04/09/19 23:00 Pt states that since yesterday AM (over 24 hrs) she has been having chest pain and reflux like gassy pain and she had nausea and vomiting. 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 SHe has no oll contacts than perhaps the kids at the school. Pt didnt get a flu shot this year. - Physicial Exam PE: 04/09/19 23:02 BP is 168 and 154 systolic in arms bilaterally. Pt has a normal exam. She is overweight Pt has pitting edema of her legs bilaterally - Medical Decision Making 04/09/19 22:58 Pt has normal Head CT scan EKG NSR; premature SVC on EKG 04/09/19 23:05 WBC normal 04/09/19 23:27 cardiac and chem labs are normal 04/10/19 00:16 Pt tells me that she feels like she needs to burp or like something heavy is on her chest. Wr will get a 2nd card enzymes 04/10/19 04:03 2nd card enz normal Pt feeling better. She will be discharged for outpatient follow up.
[2019-04-09 23:10] LABS: INR 0.92 (0.83-1.09); PROTHROMBIN TIME (PATIENT) 10.9 SEC (9.7-13.0)
[2019-04-09 23:23] LABS: ALBUMIN 3.4 g/dl (3.4-5.0); ALK PHOS 78 U/L (45-117); ANION GAP 6 MMOL/L (8-16); BILIRUBIN,TOTAL 0.3 mg/dL (0.2-1); BLOOD UREA NITROGEN 14.6 mg/dL (7-18); CALCIUM 8.7 mg/dL (8.5-10.1); CHLORIDE 110 mmol/L (98-107); CO2 26 mmol/L (21-32); CREATININE 0.7 mg/dL (0.55-1.3); GLUCOSE,RANDOM 99 mg/dL (74-106); POTASSIUM 4.3 mmol/L (3.5-5.1); SGOT/AST 11 U/L (15-37); SGPT/ALT 23 U/L (13-61); SODIUM 141 mmol/L (136-145); TOT PROT 6.9 g/dl (6.4-8.2)
--- NOTE | 2019-04-10 00:10 | PDOC ---
*Physical Exam - Vital Signs Last Vital Signs Temp Pulse Resp BP Pulse Ox 97.8 F 77 18 179/80 H 96 04/09/19 21:05 04/09/19 21:05 04/09/19 21:05 04/09/19 21:05 04/09/19 21:05 ED Treatment Course - LABORATORY CBC & Chemistry Diagram: 04/09/19 22:20 04/09/19 22:20 - ADDITIONAL ORDERS Additional order review: Laboratory Results 04/09/19 04/09/19 04/09/19 22:20 22:20 22:20 PT with INR 10.90 INR 0.92 Sodium 141 Potassium 4.3 Chloride 110 H Carbon Dioxide 26 Anion Gap 6 L BUN 14.6 Creatinine 0.7 Est GFR (CKD-EPI)AfAm 106.87 Est GFR (CKD-EPI)NonAf 92.21 Random Glucose 99 Lactic Acid 0.8 Calcium 8.7 Total Bilirubin 0.3 AST 11 L ALT 23 Alkaline Phosphatase 78 Creatine Kinase 65 Troponin I < 0.02 Total Protein 6.9 Albumin 3.4 04/09/19 22:20 RBC 4.23 MCV 85.7 MCHC 32.7 RDW 14.2 MPV 9.5 Neutrophils % 57.9 Lymphocytes % 31.6 D Monocytes % 7.4 Eosinophils % 2.1 Basophils % 1.0 - Medications Given in the ED: ED Medications Discontinued Medications Generic Name Dose Route Start Last Admin Trade Name Freq PRN Reason Stop Dose Admin Acetaminophen 1,000 mg 04/09/19 22:04 04/09/19 23:09 Ofirmev Injection - IVPB 04/09/19 22:05 1,000 mg ONCE ONE Administration Ondansetron HCl 4 mg 04/09/19 22:04 04/09/19 23:09 Zofran Injection IVPB 04/09/19 22:05 4 mg ONCE ONE Administration Medical Decision Making - Medical Decision Making 04/10/19 00:[address] Rivera. Patient is a 64 yo male w/ pmh of CHF who presents for evaluation of L arm/chest pain, headache, and vomiting. Patient evaluated with Head CT, labs as below, CXR. Patient labs grossly wnl as below. Head CT negative. Patient reporting chest pressure upon repeat evaluation. Will do 2nd troponin/EKG for ACS r/o. 02/15/20 02:57 EKG normal sinus. 2 troponins negative. No concern for acute process at this time. Discharging to home for further outpatient follow-up. Laboratory Results - last 24 hr 04/09/19 04/09/19 04/09/19 22:20 22:20 22:20 WBC 8.0 RBC 4.23 Hgb 11.9 Hct 36.3 MCV 85.7 MCH 28.1 MCHC 32.7 RDW 14.2 Plt Count 272 MPV 9.5 Absolute Neuts (auto) 4.7 Neutrophils % 57.9 Lymphocytes % 31.6 D Monocytes % 7.4 Eosinophils % 2.1 Basophils % 1.0 Nucleated RBC % 0 PT with INR INR Sodium 141 Potassium 4.3 Chloride 110 H Carbon Dioxide 26 Anion Gap 6 L BUN 14.6 Creatinine 0.7 Est GFR (CKD-EPI)AfAm 106.87 Est GFR (CKD-EPI)NonAf 92.21 Random Glucose 99 Lactic Acid 0.8 Calcium 8.7 Total Bilirubin 0.3 AST 11 L ALT 23 Alkaline Phosphatase 78 Creatine Kinase 65 Troponin I < 0.02 Total Protein 6.9 Albumin 3.4 04/09/19 04/10/19 22:20 02:07 WBC RBC Hgb Hct MCV MCH MCHC RDW Plt Count MPV Absolute Neuts (auto) Neutrophils % Lymphocytes % Monocytes % Eosinophils % Basophils % Nucleated RBC % PT with INR 10.90 INR 0.92 Sodium Potassium Chloride Carbon Dioxide Anion Gap BUN Creatinine Est GFR (CKD-EPI)AfAm Est GFR (CKD-EPI)NonAf Random Glucose Lactic Acid Calcium Total Bilirubin AST ALT Alkaline Phosphatase Creatine Kinase Troponin I < 0.02 Total Protein Albumin Discharge - Discharge Information Problems reviewed: Yes Clinical Impression/Diagnosis: Chest pain Qualifiers: Chest pain type: unspecified Qualified Code(s): R07.9 - Chest pain, unspecified Condition: Improved Disposition: HOME - Follow up/Referral Referrals: Jennifer Davies MD [Primary Care Provider] - - Patient Discharge Instructions Patient Printed Discharge Instructions: DI for Chest Pain Additional Instructions: You were evaluated today in the ER for your symptoms. We performed laboratory evaluation as well as EKG and chest X-ray with no concerning findings. Please follow-up with primary care provider early next week for further evaluation. You may take over the counter motrin or tylenol per package instructions for pain control. Return to ER if any fever, chills, increase in pain, or other concerning symptoms. - Post Discharge Activity
[2019-04-10] MEDS ORDERED: SIMETHICONE 80 MG TAB.CHEW (FP) PO ONE (00:14)
[2019-04-10 03:24] VITALS: BP 103/66; PULSE 57; TEMP 97.1
--- NOTE | 2019-04-10 17:01 | EKG ---
Test Reason : Blood Pressure : / mmHG Vent. Rate : 050 BPM Atrial Rate : 050 BPM P-R Int : 196 ms QRS Dur : 078 ms QT Int : 472 ms P-R-T Axes : 090 042 048 degrees QTc Int : 430 ms SINUS BRADYCARDIA WITH MARKED SINUS ARRHYTHMIA OTHERWISE NORMAL ECG WHEN COMPARED WITH ECG OF 23-OCT-2018 15:27, NO SIGNIFICANT CHANGE WAS FOUND BASELINE ARTIFACT Confirmed by ISAURO RAINES, ILYA ([id number]) on 04/10/2019 5:01:37 PM Referred By: Confirmed By:ILYA BOX MD
--- NOTE | 2019-04-12 10:26 | EKG ---
Test Reason : Blood Pressure : / mmHG Vent. Rate : 072 BPM Atrial Rate : 072 BPM P-R Int : 192 ms QRS Dur : 088 ms QT Int : 412 ms P-R-T Axes : 080 022 045 degrees QTc Int : 451 ms POOR DATA QUALITY, INTERPRETATION MAY BE ADVERSELY AFFECTED SINUS RHYTHM WITH PREMATURE SUPRAVENTRICULAR COMPLEXES SEPTAL INFARCT , AGE UNDETERMINED ABNORMAL ECG WHEN COMPARED WITH ECG OF 23-OCT-2018 15:27, PREMATURE SUPRAVENTRICULAR COMPLEXES ARE NOW PRESENT SEPTAL INFARCT IS NOW PRESENT Confirmed by Megan Cheek ([id number]) on 04/12/2019 10:25:48 AM Referred By: Confirmed By:Megan Cheek
== END 2019-04-10 03:23 | disposition home or self-care (01) ==
LOC: JER 20:57
DX: R07.9 Chest pain, unspecified (principal); R60.0 Localized edema; I25.119 Atherosclerotic heart disease of native coronary artery with unspecified angina pectoris; I11.0 Hypertensive heart disease with heart failure; I50.9 Heart failure, unspecified; Z98.61 Coronary angioplasty status; E78.00 Pure hypercholesterolemia, unspecified; F41.9 Anxiety disorder, unspecified
CPT/HCPCS: 36415; 70450-TC; 71046-TC-FY; 80053; 82550; 83605; 84484; 85025; 85610; 87040; 93005; 93010; 99285-25; J0131

== ENCOUNTER 2020-04-17 04:58 | Inpatient (IN) | payer BC ==
[2020-04-17] MEDS ORDERED: MIDAZOLAM HCL 2 MG/2 ML SINGLE DOSE VIAL ONE (09:14)
[2020-04-17] MEDS ORDERED: SEVOFLURANE 250 ML BTL ONE (09:22)
[2020-04-17] MEDS ORDERED: IOHEXOL 300 MG/ML INFUS..BTL IJ ONE (10:00)
[2020-04-17] MEDS ORDERED: EPINEPHrine 1:10,000 (P-F SYR) 1 MG/10 ML DISP.SYRIN SQ ONE (10:20)
[2020-04-17] MEDS ORDERED: ACETAMINOPHEN INJECTION 100 ML IVPB ONE (11:21)
[2020-04-17] MEDS: CEFTRIAXONE 1 GM in DEXTROSE 5%-WATER - 50 ML IVPB SCH (11:28)
[2020-04-17] MEDS ORDERED: HYDROmorphone HCL CARPU-JECT 2 MG/1 ML DISP.SYRIN IVPUSH ONE (11:35)
[2020-04-17] MEDS ORDERED: HYDROmorphone HCl 2 MG/ML VIAL IVPUSH PRN (11:37)
[2020-04-17] MEDS ORDERED: HYDROmorphone HCl 2 MG/ML VIAL ONE (11:41)
[2020-04-17] MEDS ORDERED: ONDANSETRON 4 MG/2 ML VIAL IVPB STA (11:44)
[2020-04-17] MEDS ORDERED: ONDANSETRON 4 MG/2 ML VIAL IVPB PRN (11:45)
[2020-04-17] MEDS ORDERED: cefTRIAXone SODIUM 1 GM VIAL ONE (11:51)
[2020-04-17] MEDS ORDERED: SODIUM CHLORIDE 100 ML IVPB ONE (11:52)
[2020-04-17] MEDS: ACETAMINOPHEN 1000 MG/100 ML VIAL (NON FORMULARY) IVPB PRN ×2 (13:25→22:20)
[2020-04-17] MEDS ORDERED: ZOLPIDEM TARTRATE 5 MG TABLET PO PRN (17:13)
[2020-04-17] MEDS ORDERED: LORazepam 1 MG TABLET PO STA (17:14)
[2020-04-17] MEDS ORDERED: FLUoxetine HCL 20 MG CAPSULE PO SCH (17:15)
[2020-04-17] MEDS: DEXTROSE 5%-NORMAL SALINE 1,000 ML IV SCH (17:44)
[2020-04-17] MEDS ORDERED: ACETAMINOPHEN 1000 MG/100 ML VIAL (NON FORMULARY) IVPB SCH (22:00)
[2020-04-17] MEDS ORDERED: PANTOPRAZOLE SODIUM 40 MG in SODIUM CHLORIDE 100 ML IVPB SCH (22:00)
[2020-04-17] MEDS: PANTOPRAZOLE SODIUM 40 MG VIAL IVPUSH SCH (22:20)
[2020-04-18 00:12] VITALS: BMI 29.1
[2020-04-18] MEDS: HYDROmorphone HCl 2 MG/ML VIAL IVPB PRN ×3 (02:34→21:46)
[2020-04-18] MEDS: DEXTROSE 5%-NORMAL SALINE 1,000 ML IV SCH ×2 (02:37→16:58)
[2020-04-18] MEDS ORDERED: LORazepam 2 MG/ML SDV VIAL IVPUSH PRN ×2 (06:42→07:49)
[2020-04-18 08:53] LABS: BASO % 0.3 % (0-2.0); EOS % 0.3 % (0-4.5); HEMATOCRIT 36.3 % (32.4-45.2); HEMOGLOBIN 11.8 GM/dL (10.7-15.3); LYMPH % 18.3 % (8-40); MCH 27.7 pg (25.7-33.7); MCHC 32.5 g/dl (32.0-36.0); MEAN CELL VOLUME 85.3 fl (80-96); MEAN PLT VOLUME 8.8 fl (7.5-11.1); MONO % 7.6 % (3.8-10.2); NEUT % 73.5 % (42.8-82.8); PLATELET COUNT 312 K/MM3 (134-434); RBC 4.25 M/mm3 (3.60-5.2); RDW 14.3 % (11.6-15.6); WHITE BLOOD COUNT 10.9 K/mm3 (4.0-10.0)
[2020-04-18] MEDS ORDERED: cefTRIAXone SODIUM 1 GM VIAL ONE (08:59)
[2020-04-18] MEDS ORDERED: DEXTROSE 5%-WATER - 50 ML IVPB ONE (09:00)
[2020-04-18] MEDS: PANTOPRAZOLE SODIUM 40 MG VIAL IVPUSH SCH ×2 (09:08→21:46)
[2020-04-18] MEDS: CEFTRIAXONE 1 GM in DEXTROSE 5%-WATER - 50 ML IVPB SCH (09:08)
[2020-04-18 09:22] LABS: POTASSIUM 4.3 mmol/L (3.5-5.1)
[2020-04-18 09:24] LABS: CALCIUM 8.8 mg/dL (8.5-10.1)
[2020-04-18 09:25] LABS: BLOOD UREA NITROGEN 10.4 mg/dL (7-18)
[2020-04-18 09:28] LABS: CREATININE 0.9 mg/dL (0.55-1.3)
[2020-04-18 09:30] LABS: BILIRUBIN,TOTAL 0.6 mg/dL (0.2-1); TOT PROT 6.3 g/dl (6.4-8.2)
[2020-04-18] MEDS ORDERED: TRIAMTERENE AND HCTZ - 37.5 MG/25 MG CAPSULE PO SCH (10:00)
[2020-04-19] MEDS ORDERED: oxyCODONE HCL 5 MG TABLET PO PRN ×2 (07:58)
[2020-04-19] MEDS ORDERED: ACETAMINOPHEN 325 MG TABLET (FP) PO PRN (07:59)
[2020-04-19] MEDS ORDERED: PT OWN MED DRAWER 7, Y5N ONE (08:52)
[2020-04-19 09:23] LABS: INR 1.06 (0.83-1.09)
[2020-04-19 09:25] LABS: HEMATOCRIT 32.8 % (32.4-45.2); HEMOGLOBIN 10.8 GM/dL (10.7-15.3); MCHC 32.8 g/dl (32.0-36.0); MEAN CELL VOLUME 85.4 fl (80-96); MEAN PLT VOLUME 9.2 fl (7.5-11.1); PLATELET COUNT 231 K/MM3 (134-434); RBC 3.84 M/mm3 (3.60-5.2); RDW 14.3 % (11.6-15.6); WHITE BLOOD COUNT 10.1 K/mm3 (4.0-10.0)
[2020-04-19 09:48] LABS: POTASSIUM 3.9 mmol/L (3.5-5.1)
[2020-04-19] MEDS ORDERED: cefTRIAXone SODIUM 1 GM VIAL ONE (10:06)
[2020-04-19] MEDS ORDERED: DEXTROSE 5%-WATER - 50 ML IVPB ONE (10:06)
[2020-04-19] MEDS: PANTOPRAZOLE 40 MG TABLET PO SCH ×2 (10:17→21:50)
[2020-04-19] MEDS: SODIUM CHLORIDE 0.45% 1,000 ML IV SCH (10:17)
[2020-04-19 10:25] LABS: CALCIUM 8.3 mg/dL (8.5-10.1); MAGNESIUM 1.9 mg/dL (1.8-2.4)
[2020-04-19 10:28] LABS: CREATININE 0.8 mg/dL (0.55-1.3)
[2020-04-19] MEDS: CEFTRIAXONE 1 GM in DEXTROSE 5%-WATER - 50 ML IVPB SCH (11:41)
[2020-04-19] MEDS: DEXTROSE 5%-NORMAL SALINE 1,000 ML IV SCH (17:22)
[2020-04-19] MEDS: METOCLOPRAMIDE HCL 10 MG TABLET (FP) PO SCH (21:49)
[2020-04-19] MEDS: ZOLPIDEM TARTRATE 5 MG TABLET PO SCH (21:50)
[2020-04-19] MEDS ORDERED: FLUoxetine HCL 10 MG CAPSULE PO SCH (22:00)
[2020-04-20] MEDS: METOCLOPRAMIDE HCL 10 MG TABLET (FP) PO SCH ×3 (06:48→21:41)
[2020-04-20] MEDS: FLUoxetine HCL 20 MG CAPSULE PO SCH (06:48)
[2020-04-20] MEDS: SODIUM CHLORIDE 0.45% 1,000 ML IV SCH (06:53)
[2020-04-20] MEDS ORDERED: DEXTROSE 5%-WATER - 50 ML IVPB ONE (09:45)
[2020-04-20] MEDS ORDERED: cefTRIAXone SODIUM 1 GM VIAL ONE (09:45)
[2020-04-20] MEDS ORDERED: FLUoxetine HCL 20 MG CAPSULE PO SCH ×2 (10:00)
[2020-04-20] MEDS ORDERED: PATIENT'S OWN MEDICATION (NON-FORMULARY) (Fluoxetine Hcl [Prozac] 40 MG Capsule) PO SCH (10:00)
[2020-04-20] MEDS: CEFTRIAXONE 1 GM in DEXTROSE 5%-WATER - 50 ML IVPB SCH (10:01)
[2020-04-20] MEDS: PANTOPRAZOLE 40 MG TABLET PO SCH ×2 (10:01→21:41)
[2020-04-20] MEDS ORDERED: ONDANSETRON 4 MG/2 ML VIAL IVPUSH ONE (16:57)
[2020-04-20] MEDS ORDERED: PT OWN MED DRAWER 7, Y5N ONE (21:15)
[2020-04-20] MEDS: FLUoxetine HCL 10 MG CAPSULE PO SCH (21:41)
[2020-04-20] MEDS: ZOLPIDEM TARTRATE 5 MG TABLET PO SCH (21:41)
[2020-04-21] MEDS: FLUoxetine HCL 20 MG CAPSULE PO SCH (06:44)
[2020-04-21] MEDS: METOCLOPRAMIDE HCL 10 MG TABLET (FP) PO SCH ×3 (06:44→21:26)
[2020-04-21 08:24] LABS: POTASSIUM 3.6 mmol/L (3.5-5.1)
[2020-04-21 08:28] LABS: BLOOD UREA NITROGEN 5.8 mg/dL (7-18); CALCIUM 8.5 mg/dL (8.5-10.1)
[2020-04-21 08:34] LABS: HEMATOCRIT 33.3 % (32.4-45.2); MCHC 33.1 g/dl (32.0-36.0); MEAN CELL VOLUME 84.5 fl (80-96); MEAN PLT VOLUME 9.3 fl (7.5-11.1); PLATELET COUNT 261 K/MM3 (134-434); RBC 3.93 M/mm3 (3.60-5.2)
[2020-04-21 08:36] LABS: CREATININE 0.7 mg/dL (0.55-1.3)
[2020-04-21] MEDS ORDERED: cefTRIAXone SODIUM 1 GM VIAL ONE (09:11)
[2020-04-21] MEDS ORDERED: DEXTROSE 5%-WATER - 50 ML IVPB ONE (09:11)
[2020-04-21] MEDS: PANTOPRAZOLE 40 MG TABLET PO SCH ×2 (09:35→21:26)
[2020-04-21] MEDS: CEFTRIAXONE 1 GM in DEXTROSE 5%-WATER - 50 ML IVPB SCH (09:35)
[2020-04-21] MEDS: HYDROCHLOROTHIAZIDE 25 MG TABLET (FP) PO SCH (09:35)
[2020-04-21 10:56] LABS: HEMATOCRIT 34.1 % (32.4-45.2); HEMOGLOBIN 11.2 GM/dL (10.7-15.3); MCH 27.7 pg (25.7-33.7); MCHC 32.8 g/dl (32.0-36.0); MEAN CELL VOLUME 84.4 fl (80-96); MEAN PLT VOLUME 8.9 fl (7.5-11.1); PLATELET COUNT 267 K/MM3 (134-434); RBC 4.03 M/mm3 (3.60-5.2); RDW 14.1 % (11.6-15.6); WHITE BLOOD COUNT 8.3 K/mm3 (4.0-10.0)
[2020-04-21 12:05] LABS: POTASSIUM 3.4 mmol/L (3.5-5.1)
[2020-04-21 12:53] LABS: ALBUMIN 2.9 g/dl (3.4-5.0); CALCIUM 8.4 mg/dL (8.5-10.1)
[2020-04-21 12:54] LABS: BLOOD UREA NITROGEN 5.7 mg/dL (7-18)
[2020-04-21 12:55] LABS: BILIRUBIN,TOTAL 0.3 mg/dL (0.2-1); CREATININE 0.7 mg/dL (0.55-1.3); TOT PROT 6.3 g/dl (6.4-8.2)
[2020-04-21] MEDS ORDERED: PT OWN MED DRAWER 7, Y5N ONE (20:57)
[2020-04-21] MEDS: FLUoxetine HCL 10 MG CAPSULE PO SCH (21:26)
[2020-04-21] MEDS: ZOLPIDEM TARTRATE 5 MG TABLET PO SCH (21:26)
[2020-04-22] MEDS: FLUoxetine HCL 20 MG CAPSULE PO SCH (06:47)
[2020-04-22] MEDS: METOCLOPRAMIDE HCL 10 MG TABLET (FP) PO SCH ×3 (06:47→21:28)
[2020-04-22 09:44] LABS: BASO % 0.6 % (0-2.0); EOS % 0.6 % (0-4.5); HEMATOCRIT 34.5 % (32.4-45.2); HEMOGLOBIN 11.3 GM/dL (10.7-15.3); LYMPH % 11.9 % (8-40); MCH 27.5 pg (25.7-33.7); MCHC 32.6 g/dl (32.0-36.0); MEAN CELL VOLUME 84.3 fl (80-96); MEAN PLT VOLUME 9.6 fl (7.5-11.1); MONO % 6.8 % (3.8-10.2); NEUT % 80.1 % (42.8-82.8); PLATELET COUNT 305 K/MM3 (134-434); WHITE BLOOD COUNT 7.1 K/mm3 (4.0-10.0)
[2020-04-22] MEDS ORDERED: DEXTROSE 5%-WATER - 50 ML IVPB ONE (09:45)
[2020-04-22] MEDS ORDERED: cefTRIAXone SODIUM 1 GM VIAL ONE (09:45)
[2020-04-22 10:10] LABS: POTASSIUM 3.6 mmol/L (3.5-5.1)
[2020-04-22] MEDS: PANTOPRAZOLE 40 MG TABLET PO SCH ×2 (10:11→21:28)
[2020-04-22] MEDS: CEFTRIAXONE 1 GM in DEXTROSE 5%-WATER - 50 ML IVPB SCH (10:11)
[2020-04-22] MEDS: HYDROCHLOROTHIAZIDE 25 MG TABLET (FP) PO SCH (10:11)
[2020-04-22 10:22] LABS: CALCIUM 8.6 mg/dL (8.5-10.1)
[2020-04-22 10:23] LABS: ALBUMIN 2.9 g/dl (3.4-5.0); BLOOD UREA NITROGEN 3.5 mg/dL (7-18); MAGNESIUM 1.9 mg/dL (1.8-2.4)
[2020-04-22 10:26] LABS: CREATININE 0.7 mg/dL (0.55-1.3)
[2020-04-22 10:27] LABS: TOT PROT 6.3 g/dl (6.4-8.2)
[2020-04-22 10:38] LABS: BILIRUBIN,TOTAL 0.4 mg/dL (0.2-1)
[2020-04-22] MEDS ORDERED: PT OWN MED DRAWER 7, Y5N ONE (21:16)
[2020-04-22] MEDS: FLUoxetine HCL 10 MG CAPSULE PO SCH (21:28)
[2020-04-22] MEDS: ZOLPIDEM TARTRATE 5 MG TABLET PO SCH (21:28)
[2020-04-23 04:35] VITALS: TEMP 98.3
[2020-04-23] MEDS: METOCLOPRAMIDE HCL 10 MG TABLET (FP) PO SCH ×2 (06:30→14:11)
[2020-04-23] MEDS: FLUoxetine HCL 20 MG CAPSULE PO SCH (06:30)
[2020-04-23] MEDS ORDERED: INSULIN (NOVOLOG) ASPART 100 UNITS/ML 10ML VIAL ONE (07:42)
[2020-04-23] MEDS ORDERED: INSULIN (LEVEMIR) 100 UNITS/ML UNITS SQ ONE (07:42)
[2020-04-23 09:08] LABS: BASO % 0.9 % (0-2.0); EOS % 0.9 % (0-4.5); HEMATOCRIT 33.9 % (32.4-45.2); HEMOGLOBIN 11.2 GM/dL (10.7-15.3); LYMPH % 13.7 % (8-40); MCH 27.8 pg (25.7-33.7); MEAN CELL VOLUME 84.1 fl (80-96); MONO % 6.6 % (3.8-10.2); NEUT % 77.9 % (42.8-82.8); PLATELET COUNT 302 K/MM3 (134-434); RBC 4.03 M/mm3 (3.60-5.2); RDW 13.9 % (11.6-15.6); WHITE BLOOD COUNT 7.6 K/mm3 (4.0-10.0)
[2020-04-23 09:19] LABS: POTASSIUM 3.4 mmol/L (3.5-5.1)
[2020-04-23 09:21] LABS: CALCIUM 8.4 mg/dL (8.5-10.1)
[2020-04-23 09:22] LABS: ALBUMIN 2.9 g/dl (3.4-5.0); MAGNESIUM 1.7 mg/dL (1.8-2.4)
[2020-04-23 09:25] LABS: CREATININE 0.7 mg/dL (0.55-1.3); PHOSPHOROUS 2.8 mg/dL (2.5-4.9)
[2020-04-23] MEDS ORDERED: PT OWN MED DRAWER 7, Y5N ONE (09:26)
[2020-04-23] MEDS ORDERED: cefTRIAXone SODIUM 1 GM VIAL ONE (09:26)
[2020-04-23] MEDS ORDERED: DEXTROSE 5%-WATER - 50 ML IVPB ONE (09:26)
[2020-04-23 09:27] LABS: BILIRUBIN,TOTAL 0.3 mg/dL (0.2-1); TOT PROT 6.1 g/dl (6.4-8.2)
[2020-04-23] MEDS: CEFTRIAXONE 1 GM in DEXTROSE 5%-WATER - 50 ML IVPB SCH (09:42)
[2020-04-23] MEDS: PANTOPRAZOLE 40 MG TABLET PO SCH (09:42)
[2020-04-23] MEDS ORDERED: TRIAMTERENE AND HCTZ - 37.5 MG/25 MG CAPSULE PO SCH (10:00)
[2020-04-23] MEDS ORDERED: MAGNESIUM SULF 50% (8.12 MEQ/2 ML-1 GM VIAL) IVPB ONE (11:46)
[2020-04-23] MEDS ORDERED: POTASSIUM CHLORIDE TABS 20 MEQ TABLET.ER (FP) PO ONE (12:00)
[2020-04-23 15:27] VITALS: BP 136/80; PULSE 68
== END 2020-04-23 17:54 | disposition home or self-care (01) | DRG 921 ==
LOC: JASU-ENDO 04:58 → SUATTDRO 04:58 → J6S 17:06
PROVIDERS: ADMIT Internal Medicine; ATTEND Internal Medicine
PROC: 0D9670Z Drainage of Stomach with Drainage Device, Via Natural or Artificial Opening (ICD-10-PCS; principal; 2020-04-19)
DX: K91.71 Accidental puncture and laceration of a digestive system organ or structure during a digestive system procedure (principal); Y83.8 Other surgical procedures as the cause of abnormal reaction of the patient, or of later complication, without mention of misadventure at the time of the procedure; I10 Essential (primary) hypertension; F41.8 Other specified anxiety disorders; I25.10 Atherosclerotic heart disease of native coronary artery without angina pectoris; E78.5 Hyperlipidemia, unspecified; R10.13 Epigastric pain
CPT/HCPCS: 36415; 74176-TC; 74178-TC; 76000-TC-FY; 80048; 80053; 83735; 84100; 85025; 85027; 85610; 86850; 86900; 86901; 94010; J0131; Q9967

== ENCOUNTER 2021-04-08 14:54 | Emergency (ER) | payer OTHER, BC ==
[2021-04-08 15:02] VITALS: TEMP 97; BMI 27.3
[2021-04-08] MEDS ORDERED: LACTATED RINGERS SOLUTION 1000 ML INFUS.BAG IV ONE (15:32)
[2021-04-08] MEDS ORDERED: METOCLOPRAMIDE HCL INJECTION 10 MG/2 ML VIAL IVPUSH ONE (15:32)
[2021-04-08] MEDS ORDERED: ACETAMINOPHEN 1000 MG/100 ML BAG IVPB ONE (15:33)
[2021-04-08] MEDS ORDERED: ACETAMINOPHEN INJECTION 100 ML IVPB ONE (15:51)
[2021-04-08] MEDS ORDERED: METOCLOPRAMIDE HCL INJECTION 10 MG/2 ML VIAL ONE (15:51)
[2021-04-08 16:39] LABS: BASO % 0.9 % (0-2.0); EOS % 0.8 % (0-4.5); HEMATOCRIT 37.6 % (32.4-45.2); HEMOGLOBIN 12.2 GM/dL (10.7-15.3); LYMPH % 23.7 % (8-40); MCH 28.5 pg (25.7-33.7); MCHC 32.5 g/dl (32.0-36.0); MEAN CELL VOLUME 87.7 fl (80-96); MEAN PLT VOLUME 8.6 fl (7.5-11.1); MONO % 6.3 % (3.8-10.2); NEUT % 68.3 % (42.8-82.8); PLATELET COUNT 270 10^3/uL (134-434); RBC 4.29 M/mm3 (3.60-5.2); RDW 13.9 % (11.6-15.6)
[2021-04-08 16:52] LABS: INR 0.98 (0.83-1.09); PROTHROMBIN TIME (PATIENT) 11.3 SEC (9.7-13.0)
[2021-04-08 16:54] LABS: ACTIVATED PTT 26.5 SECONDS (25.2-36.5)
[2021-04-08 17:02] LABS: CALCIUM 9.2 mg/dL (8.5-10.1)
[2021-04-08 17:03] LABS: ALBUMIN 3.2 g/dl (3.4-5.0); BLOOD UREA NITROGEN 18.3 mg/dL (7-18)
[2021-04-08 17:06] LABS: CREATININE 1.3 mg/dL (0.55-1.3)
[2021-04-08 17:07] LABS: BILIRUBIN,TOTAL 0.2 mg/dL (0.2-1); TOT PROT 6.3 g/dl (6.4-8.2)
[2021-04-08 17:38] VITALS: BP 122/66; PULSE 63
[2021-04-08 17:44] LABS: PH,URINE 7.5 (5.0-8.0); URINE APPEARANCE CLEAR; URINE BILIRUBIN NEGATIVE (NEGATIVE); URINE COLOR YELLOW; URINE GLUCOSE (UA) NEGATIVE (NEGATIVE); URINE KETONE NEGATIVE (NEGATIVE); URINE LEUK ESTERASE NEGATIVE (NEGATIVE); URINE NITRITE NEGATIVE (NEGATIVE); URINE PROTEIN NEGATIVE (NEGATIVE); URINE UROBILINOGEN 0.2 mg/dL (0.2-1.0)
== END 2021-04-08 18:00 | disposition home or self-care (01) ==
LOC: JER 14:54
PROC: 3E033GC Introduction of Other Therapeutic Substance into Peripheral Vein, Percutaneous Approach (ICD-10-PCS; principal; 2021-04-08)
DX: R42 Dizziness and giddiness (principal); R06.02 Shortness of breath; R51.9 Headache, unspecified
CPT/HCPCS: 36415; 70450-TC; 71045-TC-FY; 80053; 81003; 84443; 84484; 85025; 85610; 85730; 86850; 86900; 86901; 87086; 93005; 93010; 96374; 96375; 99285-25